=== PATIENT | male | born 1945 | race Caucasian/White ===

== ENCOUNTER 2019-02-06 15:18 | Inpatient (IN) | payer OTHER, MEDICARE ==
--- NOTE | 2019-02-06 15:56 | PDOC ---
History of Present Illness - General Stated Complaint: CHEST PAIN/SENT BY DR ABDI Time Seen by Provider: 02/06/19 15:55 History Source: Patient Exam Limitations: No Limitations - History of Present Illness Initial Comments: 02/06/19 16:39 73yM w PMHx colon cancer s/p resection, TIA, DM, HTN, HLD, bronchitis presenting w cough and chest pain. Non productive cough, eleno chest pain, nasal congestion, fevers (102 yesterday) started [address] Abdi PCP diagnosed pneumonia, given multiple rounds of antibiotics without improvement. Pt doesnt remember current antibiotic. Also took tylenol to temporarily relieve fevers, last dose 9a today. Denies nausea/vomiting, body aches, SOB, AB pain, urinary bowel changes. Renal US on 12/10/18 ordered for GUS showed no acute pathology, normal kidneys/ bladder, not significant BPH Past History - Past Medical History Allergies/Adverse Reactions: Allergies Allergy/AdvReac Type Severity Reaction Status Date / Time No Known Allergies Allergy Verified 02/06/19 18:20 Home Medications: Ambulatory Orders Amlodipine Besylate [Norvasc -] 5 mg PO DAILY 04/10/12 Cholecalciferol (Vitamin D3) [Vitamin D3] 2,000 unit PO DAILY 04/10/12 Finasteride 5 mg PO DAILY 04/10/12 Terazosin HCl [Hytrin -] 10 mg PO DAILY 04/10/12 Triamterene/Hydrochlorothiazid [Dyazide 37.5-25 Capsule] 37.5 mg PO DAILY Aspirin 81 mg PO DAILY 04/11/17 Dulaglutide [Trulicity] 1.5 mg SQ WEEKLY 04/11/17 metFORMIN HCL [Metformin HCl ER] 1,000 mg PO BID 04/11/17 Anemia: No Asthma: No Cancer: Yes (COLON 2000) Cardiac Disorders: No CVA: Yes (TIA NO RESIDUAL WEAKNESS 2015) COPD: No CHF: No Dementia: No Diabetes: Yes GI Disorders: Yes (COLON CANCER 2000, GERD) Disorders: No HTN: Yes Hypercholesterolemia: No Liver Disease: No Seizures: No Thyroid Disease: No - Surgical History Abdominal Surgery: Yes (COLON RESECTION WITH CHEMOTHERAPY 2000) Appendectomy: No Cardiac Surgery: No Cholecystectomy: No Lung Surgery: No Neurologic Surgery: No Orthopedic Surgery: Yes (LEFT HIP REPLACEMENT 2009) - Psycho Social/Smoking Cessation Hx Smoking History: Unknown if ever smoked Have you smoked in the past 12 months: No Number of Cigarettes Smoked Daily: 0 If you are a former smoker, when did you quit?: 1994 Hx Alcohol Use: No Drug/Substance Use Hx: No Substance Use Type: Alcohol Hx Substance Use Treatment: No Cardiac Specific PMH - Complaint Specific PMHX Pacemaker: No Review of Systems - Review of Systems Constitutional: Yes: Fever, Weakness. No: Chills HEENTM: Yes: Nose Congestion. No: Recent change in vision, Throat Pain Respiratory: Yes: Cough. No: Shortness of Breath Cardiac (ROS): Yes: Chest Pain. No: Palpitations, Syncope ABD/GI: No: Abdominal Distended, Constipated, Diarrhea, Nausea, Vomiting : No: Burning, Dysuria, Frequency Musculoskeletal: No: Back Pain, Joint Pain Integumentary: No: Bruising, Dryness, Erythema Neurological: Yes: Headache. No: Seizure, Tingling, Tremors Psychiatric: No: Anxiety, Depression, Stressors Endocrine: No: Excessive Sweating, Flushing, Intolerance to Cold, Intolerance to Heat Hematologic/Lymphatic: No: Anemia, Blood Clots *Physical Exam - Vital Signs Last Vital Signs Temp Pulse Resp BP Pulse Ox 99.6 F 83 14 149/80 96 02/06/19 15:39 02/06/19 15:39 02/06/19 15:39 02/06/19 15:42 02/06/19 15:39 - Physical Exam General Appearance: Yes: Nourished, Appropriately Dressed, Mild Distress, Obese HEENT: positive: EOMI, NATACHA, Normal Voice, Nasal Congestion, Rhinorrhea, Hearing Grossly Normal. negative: Scleral Icterus (R), Scleral Icterus (L) Respiratory/Chest: positive: Crackles, Wheezing. negative: Chest Tender, Normal Breath Sounds (coarse), Rhonchi Cardiovascular: positive: Regular Rhythm, Regular Rate, S1, S2. negative: Edema , Murmur Gastrointestinal/Abdominal: positive: Normal Bowel Sounds, Soft, Distended. negative: Tender, Organomegaly, Guarding, Rebound, Tenderness Integumentary: positive: Normal Color. 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 negative: Numbness, Confused, Disoriented Heart Score/ECG Review - History History: Slightly suspicious - Electrocardiogram EKG: Normal - Age Age: >/= 65 - Risk Factors Risk Factors Heart Score: Yes Hx Hypercholesterolemia, Yes Hx Hypertension, Yes Hx Diabetes, Yes Hx Obesity Based on the list above the patient has:: >/=3 risk factors or Hx atherosclerotic disease - Troponin Troponin: </= normal limit - Score Heart Score - Total: 4 ED Treatment Course - LABORATORY CBC & Chemistry Diagram: 02/06/19 17:00 02/06/19 17:00 - ADDITIONAL ORDERS Additional order review: Laboratory Results 02/06/19 02/06/19 02/06/19 18:16 17:40 17:40 PT with INR 11.90 INR 1.01 PTT (Actin FS) 30.7 VBG pH 7.38 POC VBG pCO2 40.4 POC VBG pO2 < 49 H VBG HCO3 23.3 VBG O2 Sat (Charlene) 55.3 L VBG Base Excess -1.1 Sodium Potassium Chloride Carbon Dioxide Anion Gap BUN Creatinine Est GFR (CKD-EPI)AfAm Est GFR (CKD-EPI)NonAf Random Glucose Lactic Acid 1.4 Calcium Total Bilirubin AST ALT Alkaline Phosphatase Total Protein Albumin 02/06/19 17:00 PT with INR INR PTT (Actin FS) VBG pH POC VBG pCO2 POC VBG pO2 VBG HCO3 VBG O2 Sat (Charlene) VBG Base Excess Sodium 138 Potassium 3.9 Chloride 106 Carbon Dioxide 25 Anion Gap 8 BUN 39.5 H Creatinine 2.4 H Est GFR (CKD-EPI)AfAm 30.11 Est GFR (CKD-EPI)NonAf 25.98 Random Glucose 105 Lactic Acid Calcium 9.2 Total Bilirubin 0.2 AST 40 H ALT 43 Alkaline Phosphatase 44 L Total Protein 7.3 Albumin 4.0 02/06/19 17:00 RBC 3.77 L MCV 87.3 MCHC 32.5 RDW 15.3 MPV 7.3 L Neutrophils % 69.3 Lymphocytes % 13.4 Monocytes % 15.9 H Eosinophils % 0.5 Basophils % 0.9 - RADIOLOGY Radiology Studies Ordered: Category Date Time Status CHEST X-RAY PORTABLE* [RAD] Stat Radiology 02/06/19 16:37 Taken - Medications Given in the ED: ED Medications Discontinued Medications Generic Name Dose Route Start Last Admin Trade Name Freq PRN Reason Stop Dose Admin Acetaminophen 1,000 mg 02/06/19 17:27 02/06/19 18:12 Ofirmev Injection - IVPB 02/06/19 17:28 1,000 mg ONCE ONE Administration Albuterol/Ipratropium 1 amp 02/06/19 17:16 02/06/19 17:50 Duoneb - NEB 02/06/19 17:17 1 amp ONCE ONE Administration Methylprednisolone Sodium Succinate 125 mg 02/06/19 17:16 02/06/19 17:57 Solu-Medrol - IVPUSH 02/06/19 17:17 125 mg ONCE ONE Administration Sodium Chloride 1,000 ml 02/06/19 18:38 02/06/19 18:53 Normal Saline - IV 02/06/19 18:39 1,000 ml ONCE ONE Administration Medical Decision Making - Medical Decision Making 02/06/19 16:03 sepsis workup EKG sinus tachycardia, L anterior fascicular block, HR 102, QTc 469, no ST changes CXR shows enlarged cardiac silhouette vs 2014 duoneb, solumedrol, tylenol Hgb 10.7, Cr 2.4 --- 73yM w PMHx colon cancer s/p resection, TIA, DM, HTN, HLD, bronchitis presenting w 4 weeks cough, chest pain, headache d/t URI vs PNA and COPD exacerbation (wheezing). CXR portable did not show any focal consolidation, but showed enlarged cardiac silhouette vs 2015. Low concern for ACS (neg trop, NSR EKG). Has GUS w elevated Cr 2.4 and anemia Hgb 10.7. Given duonebx1, solumedrol , tylenol Plan to admit to m/s Dr Garcia for URI resistant to outpatient therapy, high HEART score (4), COPD exacerbation, GUS Pending UA Signed out to night team. Discharge - Discharge Information Problems reviewed: Yes Clinical Impression/Diagnosis: GUS (acute kidney injury), COPD exacerbation URI (upper respiratory infection) Qualifiers: URI type: unspecified URI Qualified Code(s): J06.9 - Acute upper respiratory infection, unspecified Condition: Improved - Follow up/Referral Referrals: Mindy Garcia MD [Primary Care Provider] - - Patient Discharge Instructions - Post Discharge Activity
--- NOTE | 2019-02-06 17:01 | PDOC ---
Attending Attestation - Resident Resident Name: Adi Gale - HPI HPI: 02/06/19 17:26 Pt presents to the ED complaining of several weeks of productive cough, fever and shortness of breath. + fevers at home. Patient has been placed on two different antibiotics by Dr. Garcia without relief. Denies nausea or vomiting. - Physicial Exam PE: 02/06/19 17:28 Agree with resident exam. Patient is alert and oriented x 3 and in no acute distress. Speaking in complete sentences. + diffuse wheezing on lung exam. - Medical Decision Making 02/06/19 17:29 Pt presents to the ED complaining of cough, fever and shortness of breath. Two courses of PO antibiotics without success. Will check CXR, labs, treat with antibiotics and admit to medicine.
[2019-02-06] MEDS ORDERED: ALBUTEROL SO4 2.5/IPRATROPIUM 0.5 INH SOL 3 ML VIAL.NEB. NEB ONE ×2 (17:16→17:49)
[2019-02-06] MEDS ORDERED: methylPREDNISolone NA SUCC 125 MG/2 ML VIAL IVPUSH ONE (17:16)
[2019-02-06] MEDS ORDERED: ACETAMINOPHEN 1000 MG/100 ML VIAL (NON FORMULARY) IVPB ONE (17:27)
[2019-02-06] MEDS ORDERED: ACETAMINOPHEN INJECTION 100 ML IVPB ONE (17:49)
[2019-02-06] MEDS ORDERED: methylPREDNISolone NA SUCC 125 MG/2 ML VIAL ONE (17:49)
[2019-02-06 17:56] LABS: VENOUS PC02 40.4 mmHg (38-52); VENOUS PH 7.38 (7.31-7.41)
[2019-02-06 17:58] LABS: VENOUS PO2 < 49 mmHg (28-48)
[2019-02-06 18:03] LABS: BASO % 0.9 % (0-2.0); EOS % 0.5 % (0-4.5); HEMATOCRIT 32.9 % (35.4-49); HEMOGLOBIN 10.7 GM/dL (11.7-16.9); LYMPH % 13.4 % (8-40); MCH 28.4 pg (25.7-33.7); MCHC 32.5 g/dl (32.0-35.9); MEAN CELL VOLUME 87.3 fl (80-96); MEAN PLT VOLUME 7.3 fl (7.5-11.1); MONO % 15.9 % (3.8-10.2); NEUT % 69.3 % (42.8-82.8); PLATELET COUNT 209 K/MM3 (134-434); RBC 3.77 M/mm3 (4.00-5.60); RDW 15.3 % (11.9-15.9); WHITE BLOOD COUNT 5.5 K/mm3 (4.0-10.0)
[2019-02-06 18:25] LABS: BILIRUBIN,TOTAL 0.2 mg/dL (0.2-1); BLOOD UREA NITROGEN 39.5 mg/dL (7-18); CALCIUM 9.2 mg/dL (8.5-10.1); CREATININE 2.4 mg/dL (0.55-1.3); POTASSIUM 3.9 mmol/L (3.5-5.1); TOT PROT 7.3 g/dl (6.4-8.2)
[2019-02-06 18:36] LABS: INR 1.01 (0.83-1.09); PROTHROMBIN TIME (PATIENT) 11.9 SEC (9.7-13.0)
[2019-02-06] MEDS ORDERED: SODIUM CHLORIDE 0.9% 500 ML INFUS.BAG IV ONE ×2 (18:38→19:52)
[2019-02-06 18:39] LABS: ACTIVATED PTT 30.7 SECONDS (25.2-36.5)
--- NOTE | 2019-02-06 19:10 | PDOC ---
*Physical Exam - Vital Signs Last Vital Signs Temp Pulse Resp BP Pulse Ox 99.6 F 83 14 149/80 96 02/06/19 15:39 02/06/19 15:39 02/06/19 15:39 02/06/19 15:42 02/06/19 15:39 ED Treatment Course - LABORATORY CBC & Chemistry Diagram: 02/06/19 17:00 02/06/19 17:00 - ADDITIONAL ORDERS Additional order review: Laboratory Results 02/06/19 02/06/19 02/06/19 18:16 17:40 17:40 PT with INR 11.90 INR 1.01 PTT (Actin FS) 30.7 VBG pH 7.38 POC VBG pCO2 40.4 POC VBG pO2 < 49 H VBG HCO3 23.3 VBG O2 Sat (Charlene) 55.3 L VBG Base Excess -1.1 Sodium Potassium Chloride Carbon Dioxide Anion Gap BUN Creatinine Est GFR (CKD-EPI)AfAm Est GFR (CKD-EPI)NonAf Random Glucose Lactic Acid 1.4 Calcium Total Bilirubin AST ALT Alkaline Phosphatase Total Protein Albumin 02/06/19 17:00 PT with INR INR PTT (Actin FS) VBG pH POC VBG pCO2 POC VBG pO2 VBG HCO3 VBG O2 Sat (Charlene) VBG Base Excess Sodium 138 Potassium 3.9 Chloride 106 Carbon Dioxide 25 Anion Gap 8 BUN 39.5 H Creatinine 2.4 H Est GFR (CKD-EPI)AfAm 30.11 Est GFR (CKD-EPI)NonAf 25.98 Random Glucose 105 Lactic Acid Calcium 9.2 Total Bilirubin 0.2 AST 40 H ALT 43 Alkaline Phosphatase 44 L Total Protein 7.3 Albumin 4.0 02/06/19 17:00 RBC 3.77 L MCV 87.3 MCHC 32.5 RDW 15.3 MPV 7.3 L Neutrophils % 69.3 Lymphocytes % 13.4 Monocytes % 15.9 H Eosinophils % 0.5 Basophils % 0.9 - Medications Given in the ED: ED Medications Discontinued Medications Generic Name Dose Route Start Last Admin Trade Name Freq PRN Reason Stop Dose Admin Acetaminophen 1,000 mg 02/06/19 17:27 02/06/19 18:12 Ofirmev Injection - IVPB 02/06/19 17:28 1,000 mg ONCE ONE Administration Albuterol/Ipratropium 1 amp 02/06/19 17:16 02/06/19 17:50 Duoneb - NEB 02/06/19 17:17 1 amp ONCE ONE Administration Methylprednisolone Sodium Succinate 125 mg 02/06/19 17:16 02/06/19 17:57 Solu-Medrol - IVPUSH 02/06/19 17:17 125 mg ONCE ONE Administration Sodium Chloride 1,000 ml 02/06/19 18:38 02/06/19 18:53 Normal Saline - IV 02/06/19 18:39 1,000 ml ONCE ONE Administration Medical Decision Making - Medical Decision Making 02/06/19 19:08 Pt received on sign out from Dr. Gale. 73M hx of DM HTN HLD bronchitis with 4 weeks of cough, congestion, fevers. Had outpt abx but unsure of course. Sent in by Dr. Garcia. CXR shows cardiomegaly w /o clear consolidation. Labs show GUS. UA pending. Plan to admit to med/surg for PNA and failed outpatient treatment and GUS. ED course includes 1 duoneb, solumedrol and tylenol. 02/06/19 19:45 Pt started on azithromycin and ceftriaxone. 02/06/19 20:00 D/w Dr. Garcia who accepts the patient for admission. Discharge - Discharge Information Problems reviewed: Yes Clinical Impression/Diagnosis: GUS (acute kidney injury), Pneumonia URI (upper respiratory infection) Qualifiers: URI type: unspecified URI Qualified Code(s): J06.9 - Acute upper respiratory infection, unspecified Condition: Stable - Admission Yes - Follow up/Referral - Patient Discharge Instructions - Post Discharge Activity
[2019-02-06 19:39] LABS: EPI CELLS 0.6 /HPF (0-5/HPF); HYALINE CASTS 2 /lpf (0-8); URINE APPEARANCE CLEAR; URINE BACTERIA 28.9 /hpf (NEGATIVE); URINE BILIRUBIN NEGATIVE (NEGATIVE); URINE COLOR YELLOW; URINE GLUCOSE (UA) NEGATIVE (NEGATIVE); URINE KETONE NEGATIVE (NEGATIVE); URINE LEUK ESTERASE NEGATIVE (NEGATIVE); URINE NITRITE NEGATIVE (NEGATIVE); URINE PROTEIN 2+ (NEGATIVE); URINE RBC 1 /hpf (0-4); URINE UROBILINOGEN 0.2 mg/dL (0.2-1.0); URINE WBC 1 /hpf (0-5)
[2019-02-06] MEDS ORDERED: AZITHROMYCIN IVPB 500 MG in DEXTROSE 5%-WATER - 250 ML IVPB ONE (19:51)
[2019-02-06] MEDS ORDERED: CEFTRIAXONE 1 GM in DEXTROSE 5%-WATER - 100 ML IVPB ONE (19:52)
[2019-02-06] MEDS ORDERED: AZITHROMYCIN IVPB 500 MG/250 ML BAG IVPB ONE (20:22)
[2019-02-06] MEDS ORDERED: CEFTRIAXONE 1 GM/50 ML BAG ONE (20:22)
[2019-02-06] MEDS: methylPREDNISolone NA SUCC 40 MG/1 ML VIAL IVPUSH SCH (23:13)
[2019-02-06] MEDS: SODIUM CHLORIDE 1,000 ML IV SCH (23:13)
[2019-02-07] MEDS: methylPREDNISolone NA SUCC 40 MG/1 ML VIAL IVPUSH SCH ×4 (03:47→21:36)
[2019-02-07] MEDS: INSULIN SLIDING SCALE (NOVOLOG) 1 VIAL SQ SCH ×4 (07:00→21:39)
[2019-02-07] MEDS ORDERED: AMPICILLIN NA/SULBACTAM NA 1.5 GM VIAL IVPB SCH (08:00)
[2019-02-07] MEDS ORDERED: AMPICILLIN NA/SULBACTAM NA 1.5 GM VIAL ONE ×2 (08:07→17:20)
[2019-02-07] MEDS ORDERED: SODIUM CHLORIDE 100 ML IVPB ONE ×2 (08:07→17:20)
[2019-02-07] MEDS: ALBUTEROL SO4 2.5/IPRATROPIUM 0.5 INH SOL 3 ML VIAL.NEB. NEB SCH ×4 (08:10→20:15)
[2019-02-07] MEDS: AMPICILLIN NA/SULBACTAM NA 1.5 GM in SODIUM CHLORIDE 100 ML IVPB SCH ×2 (08:44→17:22)
[2019-02-07 09:00] LABS: BASO % 0.4 % (0-2.0); HEMATOCRIT 34.6 % (35.4-49); MCH 28.3 pg (25.7-33.7); MCHC 31.9 g/dl (32.0-35.9); MEAN CELL VOLUME 88.6 fl (80-96); MEAN PLT VOLUME 7.3 fl (7.5-11.1); MONO % 2.5 % (3.8-10.2); NEUT % 80.1 % (42.8-82.8); PLATELET COUNT 227 K/MM3 (134-434); RBC 3.91 M/mm3 (4.00-5.60); RDW 15.4 % (11.9-15.9); WHITE BLOOD COUNT 5.2 K/mm3 (4.0-10.0)
[2019-02-07 09:25] LABS: ALBUMIN 3.9 g/dl (3.4-5.0); BILIRUBIN,TOTAL 0.2 mg/dL (0.2-1); BLOOD UREA NITROGEN 35.7 mg/dL (7-18); CALCIUM 8.8 mg/dL (8.5-10.1); CREATININE 2.3 mg/dL (0.55-1.3); POTASSIUM 3.6 mmol/L (3.5-5.1); TOT PROT 7.6 g/dl (6.4-8.2)
[2019-02-07] MEDS: ASPIRIN 81 MG CHEWABLE TABLETS PO SCH (09:40)
[2019-02-07] MEDS: amLODIPine BESYLATE 5 MG TABLET (FP) PO SCH (09:40)
[2019-02-07] MEDS: FINASTERIDE 5 MG TABLET (FP) PO SCH (09:40)
[2019-02-07] MEDS: PANTOPRAZOLE 40 MG TABLET (FP) PO SCH (09:40)
[2019-02-07] MEDS: guaiFENesin/D-M SUGAR-FREE/ACLHOL-FREE 118 ML BOTTLE PO PRN ×2 (17:43→21:38)
[2019-02-07] MEDS ORDERED: SODIUM CHLORIDE 1,000 ML IV SCH (19:30)
--- NOTE | 2019-02-07 19:35 | HP ---
Admitting History and Physical - Admission Chief Complaint: worsening cough and high fever not responding to oral antibiotics History of Present Illness: 73 yo male with PMH of COPD, DM devi 2, and Colon cancer post partial resection, was seen in the office repeatedly for persisting cough and persisting fever of 102. He was treated with 2 rounds of antibiotics : Augmentin and Biaxin without improvement. His cough interferes with his sleep and activity. He DENIES chest pain or shortness of breath, denies wheezing. Limitations to Obtaining History: No Limitations - Past Medical History Cardiovascular: Yes: HTN, Hyperlipdemia Pulmonary: Yes: COPD Gastrointestinal: Yes: Cancer Psych: Yes: Anxiety, Depression Endocrine: Yes: Diabetes Mellitus - Smoking History Smoking history: Former smoker Have you smoked in the past 12 months: No Aproximately how many cigarettes per day: 0 If you are a former smoker, when did you quit?: 1994 - Alcohol/Substance Use Hx Alcohol Use: No Home Medications - Allergies Allergies/Adverse Reactions: Allergies Allergy/AdvReac Type Severity Reaction Status Date / Time No Known Allergies Allergy Verified 02/06/19 18:20 - Home Medications Home Medications: Ambulatory Orders Amlodipine Besylate [Norvasc -] 5 mg PO DAILY 04/10/12 Cholecalciferol (Vitamin D3) [Vitamin D3] 2,000 unit PO DAILY 04/10/12 Finasteride 5 mg PO DAILY 04/10/12 Terazosin HCl [Hytrin -] 10 mg PO DAILY 04/10/12 Aspirin 81 mg PO DAILY 04/11/17 Amlodipine Besylate [Norvasc -] 5 mg PO DAILY tablet 02/13/19 Amox-Tr/K Cl [Augmentin 875-125mg Tablet -] 1 tab PO BID@0800,1730 #10 tablet Aspirin [ASA -] 81 mg PO DAILY tab.chew 02/13/19 Finasteride [Proscar -] 5 mg PO DAILY tablet 02/13/19 Pantoprazole Sodium [Protonix -] 40 mg PO DAILY tablet.ec 02/13/19 Potassium Chloride [K-Dur -] 40 meq PO DAILY #90 tablet.er 02/13/19 Sitagliptin Phosphate [Januvia -] 50 mg PO DAILY@0700 #90 tablet 02/13/19 Terazosin HCl [Hytrin -] 5 mg PO HS capsule 02/13/19 predniSONE [Deltasone -] 60 mg PO DAILY #44 tablet 02/13/19 Review of Systems Unable to obtain ROS, reason: cough, weak, fever - Review of Systems Constitutional: reports: Fever, Loss of Appetite, Weakness Eyes: reports: No Symptoms HENT: reports: No Symptoms Neck: reports: No Symptoms Cardiovascular: reports: No Symptoms Respiratory: reports: Cough, Exercise Intolerance (decreased) Musculoskeletal: reports: Back Pain, Muscle Weakness Neurological: reports: Weakness Physical Examination Vital Signs: Vital Signs Temperature 97.4 F L 02/07/19 17:53 Pulse Rate 86 02/07/19 17:53 Respiratory Rate 20 02/07/19 17:53 Blood Pressure 144/76 02/07/19 17:53 O2 Sat by Pulse Oximetry (%) 93 L 02/07/19 09:00 Constitutional: Yes: Well Nourished, No Distress, Obese Eyes: Yes: Conjunctiva Clear, EOM Intact HENT: Yes: Atraumatic, Normocephalic Cardiovascular: Yes: Regular Rate and Rhythm, S1, S2 Respiratory: Yes: Cough, Orthopnea. No: Rales Gastrointestinal: Yes: Normal Bowel Sounds, Soft, Abdomen, Obese, Distention. No: Palpable Mass, Pulsatile Mass, Rectal Bleeding, Splenomegaly, Tenderness, Epigastrium Renal/: No: Bladder Distention, CVA Tenderness - Left, CVA Tenderness - Right , Black Present Musculoskeletal: Yes: Back Pain Extremities: No: Calf Tenderness Edema: No Neurological: Yes: Alert, Oriented Labs: CBC, BMP 02/07/19 08:40 02/07/19 08:40 Imaging - Results Chest X-ray: Other (read by me: no pleural effusion, no infiltrate no masses) Problem List - Problems (1) COPD (chronic obstructive pulmonary disease) Assessment/Plan: SoluMedrol 60 mg iv every 8 hours Unasyn iv every 8 hours Duo Neb Problems reviewed: Yes Code(s): J44.9 - CHRONIC OBSTRUCTIVE PULMONARY DISEASE, UNSPECIFIED (2) Acute kidney injury superimposed on CKD Assessment/Plan: gentle hydration repeat labs in am Code(s): N17.9 - ACUTE KIDNEY FAILURE, UNSPECIFIED; N18.9 - CHRONIC KIDNEY DISEASE, UNSPECIFIED (3) Diabetes mellitus Assessment/Plan: hold MEtformin due to AKD Insulin as needed AC and HS Code(s): E11.9 - TYPE 2 DIABETES MELLITUS WITHOUT COMPLICATIONS (4) Diabetes mellitus type 2 in obese Assessment/Plan: BGM's AC and HS Code(s): E11.69 - TYPE 2 DIABETES MELLITUS WITH OTHER SPECIFIED COMPLICATION; E66.9 - OBESITY, UNSPECIFIED
[2019-02-07] MEDS: TERAZOSIN HCL 5 MG CAPSULE PO SCH (21:38)
[2019-02-08] MEDS ORDERED: SODIUM CHLORIDE 100 ML IVPB ONE ×3 (01:29→15:04)
[2019-02-08] MEDS ORDERED: AMPICILLIN NA/SULBACTAM NA 1.5 GM VIAL ONE ×3 (01:29→15:04)
[2019-02-08] MEDS: SODIUM CHLORIDE 1,000 ML IV SCH ×3 (01:44→23:33)
[2019-02-08] MEDS: methylPREDNISolone NA SUCC 40 MG/1 ML VIAL IVPUSH SCH ×4 (02:23→21:53)
[2019-02-08] MEDS: AMPICILLIN NA/SULBACTAM NA 1.5 GM in SODIUM CHLORIDE 100 ML IVPB SCH ×3 (02:25→17:10)
[2019-02-08] MEDS: INSULIN SLIDING SCALE (NOVOLOG) 1 VIAL SQ SCH ×4 (06:48→21:54)
[2019-02-08] MEDS: guaiFENesin/D-M SUGAR-FREE/ACLHOL-FREE 118 ML BOTTLE PO PRN ×3 (06:50→21:59)
[2019-02-08] MEDS: ALBUTEROL SO4 2.5/IPRATROPIUM 0.5 INH SOL 3 ML VIAL.NEB. NEB SCH ×4 (08:25→19:50)
[2019-02-08 09:00] LABS: ALBUMIN 3.5 g/dl (3.4-5.0); BILIRUBIN,TOTAL 0.2 mg/dL (0.2-1); BLOOD UREA NITROGEN 46.9 mg/dL (7-18); CALCIUM 8.4 mg/dL (8.5-10.1); CREATININE 2.2 mg/dL (0.55-1.3); POTASSIUM 3.9 mmol/L (3.5-5.1); TOT PROT 6.5 g/dl (6.4-8.2)
[2019-02-08] MEDS: amLODIPine BESYLATE 5 MG TABLET (FP) PO SCH (09:43)
[2019-02-08] MEDS: FINASTERIDE 5 MG TABLET (FP) PO SCH (09:43)
[2019-02-08] MEDS: ASPIRIN 81 MG CHEWABLE TABLETS PO SCH (09:43)
[2019-02-08] MEDS: PANTOPRAZOLE 40 MG TABLET (FP) PO SCH (09:43)
--- NOTE | 2019-02-08 10:14 | EKG ---
Test Reason : Blood Pressure : / mmHG Vent. Rate : 102 BPM Atrial Rate : 102 BPM P-R Int : 174 ms QRS Dur : 102 ms QT Int : 360 ms P-R-T Axes : 016 -59 032 degrees QTc Int : 469 ms SINUS TACHYCARDIA LEFT ANTERIOR FASCICULAR BLOCK ABNORMAL ECG NO PREVIOUS ECGS AVAILABLE Confirmed by PALOMA HOOVER, SHELBI ([id number]) on 02/08/2019 10:14:05 AM Referred By: Confirmed By:SHELBI DOW MD
--- NOTE | 2019-02-08 12:48 | PN ---
Progress Note, Physician Chief Complaint: cough, no fever - Current Medication List Current Medications: Active Medications Albuterol/Ipratropium (Duoneb -) 1 amp NEB RQID [facility] Last Admin: 02/08/19 11:10 Dose: 1 amp Amlodipine Besylate (Norvasc -) 5 mg PO DAILY [facility] Last Admin: 02/08/19 09:43 Dose: 5 mg Aspirin (Asa -) 81 mg PO DAILY [facility] Last Admin: 02/08/19 09:43 Dose: 81 mg Finasteride (Proscar -) 5 mg PO DAILY [facility] Last Admin: 02/08/19 09:43 Dose: 5 mg Guaifenesin (Diabetic Tussin Dm -) 10 ml PO Q4H PRN PRN Reason: COUGH Last Admin: 02/08/19 06:50 Dose: 10 ml Ampicillin Sodium/Sulbactam (Sodium 1.5 gm/ Sodium Chloride) 100 mls @ 200 mls/ hr IVPB Q8H-IV [facility] Last Admin: 02/08/19 09:46 Dose: 200 mls/hr Sodium Chloride (Normal Saline -) 1,000 mls @ 50 mls/hr IV ASDIR [facility] Stop: 02/08/19 19:25 Last Admin: 02/08/19 02:21 Dose: 50 mls/hr Insulin Aspart (Novolog Vial Sliding Scale -) 1 vial SQ ACHS [facility]; Protocol Last Admin: 02/08/19 11:59 Dose: 4 units Methylprednisolone Sodium Succinate (Solu-Medrol -) 60 mg IVPUSH Q6H-IV [facility] Pantoprazole Sodium (Protonix -) 40 mg PO DAILY [facility] Last Admin: 02/08/19 09:43 Dose: 40 mg Sitagliptin Phosphate (Januvia -) 25 mg PO DAILY@0700 [facility] Terazosin HCl (Hytrin -) 5 mg PO HS [facility] Last Admin: 02/07/19 21:38 Dose: 5 mg - Objective Vital Signs: Vital Signs Temperature 97.5 F L 02/08/19 06:00 Pulse Rate 80 02/08/19 10:00 Respiratory Rate 18 02/08/19 10:00 Blood Pressure 136/72 02/08/19 10:00 O2 Sat by Pulse Oximetry (%) 96 02/08/19 09:00 Respiratory: Yes: Rhonchi, Wheezes (bilaterally) Labs: CBC, BMP 02/07/19 08:40 02/08/19 08:03 INR, PTT INR 1.01 (0.83-1.09) 02/06/19 18:16 Problem List - Problems (1) COPD (chronic obstructive pulmonary disease) Assessment/Plan: SoluMedrol 60 mg iv every 8 hours Unasyn iv every 8 hours Duo Neb Code(s): J44.9 - CHRONIC OBSTRUCTIVE PULMONARY DISEASE, UNSPECIFIED (2) Acute kidney injury superimposed on CKD Assessment/Plan: gentle hydration repeat labs in am Code(s): N17.9 - ACUTE KIDNEY FAILURE, UNSPECIFIED; N18.9 - CHRONIC KIDNEY DISEASE, UNSPECIFIED (3) Diabetes mellitus Assessment/Plan: hold MEtformin due to AKD Insulin as needed AC and HS Code(s): E11.9 - TYPE 2 DIABETES MELLITUS WITHOUT COMPLICATIONS (4) Diabetes mellitus type 2 in obese Assessment/Plan: BG's AC and HS Code(s): E11.69 - TYPE 2 DIABETES MELLITUS WITH OTHER SPECIFIED COMPLICATION; E66.9 - OBESITY, UNSPECIFIED
[2019-02-08] MEDS: TERAZOSIN HCL 5 MG CAPSULE PO SCH (21:54)
[2019-02-09] MEDS ORDERED: AMPICILLIN NA/SULBACTAM NA 1.5 GM VIAL ONE ×3 (01:23→17:34)
[2019-02-09] MEDS ORDERED: SODIUM CHLORIDE 100 ML IVPB ONE ×3 (01:24→17:34)
[2019-02-09] MEDS: AMPICILLIN NA/SULBACTAM NA 1.5 GM in SODIUM CHLORIDE 100 ML IVPB SCH ×3 (01:40→17:41)
[2019-02-09] MEDS: methylPREDNISolone NA SUCC 40 MG/1 ML VIAL IVPUSH SCH ×4 (02:21→21:28)
[2019-02-09] MEDS: INSULIN SLIDING SCALE (NOVOLOG) 1 VIAL SQ SCH ×4 (06:40→21:29)
[2019-02-09] MEDS: ALBUTEROL SO4 2.5/IPRATROPIUM 0.5 INH SOL 3 ML VIAL.NEB. NEB SCH ×4 (08:00→20:49)
[2019-02-09 08:09] LABS: ALBUMIN 3.2 g/dl (3.4-5.0); BILIRUBIN,TOTAL 0.2 mg/dL (0.2-1); BLOOD UREA NITROGEN 47.2 mg/dL (7-18); CALCIUM 8.1 mg/dL (8.5-10.1); CREATININE 2.1 mg/dL (0.55-1.3); POTASSIUM 4.1 mmol/L (3.5-5.1); TOT PROT 6.2 g/dl (6.4-8.2)
[2019-02-09] MEDS: ASPIRIN 81 MG CHEWABLE TABLETS PO SCH (09:59)
[2019-02-09] MEDS: PANTOPRAZOLE 40 MG TABLET (FP) PO SCH (09:59)
[2019-02-09] MEDS: amLODIPine BESYLATE 5 MG TABLET (FP) PO SCH (09:59)
[2019-02-09] MEDS: FINASTERIDE 5 MG TABLET (FP) PO SCH (09:59)
[2019-02-09] MEDS ORDERED: INSULIN (NOVOLOG) ASPART 100 UNITS/ML 10ML VIAL ONE (11:52)
[2019-02-09] MEDS: guaiFENesin/D-M SUGAR-FREE/ACLHOL-FREE 118 ML BOTTLE PO PRN ×2 (13:27→21:29)
[2019-02-09] MEDS: SODIUM CHLORIDE 1,000 ML IV SCH (15:33)
[2019-02-09] MEDS ORDERED: PT OWN MED DRAWER 7, Y5N ONE (20:58)
[2019-02-09] MEDS: TERAZOSIN HCL 5 MG CAPSULE PO SCH (21:29)
--- NOTE | 2019-02-09 21:36 | PN ---
Progress Note, Physician Chief Complaint: cough improved, orthopnea better edema of the lower extremities History of Present Illness: 72 yo male admitted with hpersisiting cough not responding to oral antibiotics - Current Medication List Current Medications: Active Medications Albuterol/Ipratropium (Duoneb -) 1 amp NEB RQID [facility] Last Admin: 02/09/19 20:49 Dose: 1 amp Amlodipine Besylate (Norvasc -) 5 mg PO DAILY [facility] Last Admin: 02/09/19 09:59 Dose: 5 mg Aspirin (Asa -) 81 mg PO DAILY [facility] Last Admin: 02/09/19 09:59 Dose: 81 mg Finasteride (Proscar -) 5 mg PO DAILY [facility] Last Admin: 02/09/19 09:59 Dose: 5 mg Guaifenesin (Diabetic Tussin Dm -) 10 ml PO Q4H PRN PRN Reason: COUGH Last Admin: 02/09/19 21:29 Dose: 10 ml Ampicillin Sodium/Sulbactam (Sodium 1.5 gm/ Sodium Chloride) 100 mls @ 200 mls/ hr IVPB Q8H-IV [facility] Last Admin: 02/09/19 17:41 Dose: 200 mls/hr Sodium Chloride (Normal Saline -) 1,000 mls @ 75 mls/hr IV ASDIR [facility] Last Admin: 02/09/19 15:33 Dose: 75 mls/hr Insulin Aspart (Novolog Vial Sliding Scale -) 1 vial SQ ACHS [facility]; Protocol Last Admin: 02/09/19 21:29 Dose: 6 units Methylprednisolone Sodium Succinate (Solu-Medrol -) 60 mg IVPUSH Q8H-IV [facility] Pantoprazole Sodium (Protonix -) 40 mg PO DAILY [facility] Last Admin: 02/09/19 09:59 Dose: 40 mg Sitagliptin Phosphate (Januvia -) 25 mg PO DAILY@0700 [facility] Last Admin: 02/09/19 06:40 Dose: 25 mg Sitagliptin Phosphate (Januvia -) 50 mg PO DAILY@0700 [facility] Terazosin HCl (Hytrin -) 5 mg PO HS [facility] Last Admin: 02/09/19 21:29 Dose: 5 mg - Objective Vital Signs: Vital Signs Temperature 98.5 F 02/09/19 18:00 Pulse Rate 77 02/09/19 18:00 Respiratory Rate 20 02/09/19 18:00 Blood Pressure 136/75 02/09/19 18:00 O2 Sat by Pulse Oximetry (%) 94 L 02/09/19 09:00 Constitutional: Yes: Well Nourished, No Distress Eyes: Yes: Conjunctiva Clear, EOM Intact HENT: Yes: Atraumatic, Normocephalic Neck: Yes: Supple, Trachea Midline Cardiovascular: Yes: Regular Rate and Rhythm, S1, S2 Respiratory: Yes: Regular, CTA Bilaterally, On Nasal O2 Gastrointestinal: Yes: Normal Bowel Sounds, Soft ...Rectal Exam: Yes: Deferred Genitourinary: Yes: WNL Musculoskeletal: Yes: WNL Extremities: Yes: WNL. No: Calf Tenderness Edema: Yes Edema: LLE: 1+, RLE: 1+ Neurological: Yes: Alert, Oriented Psychiatric: Yes: Alert, Oriented Labs: CBC, BMP 02/07/19 08:40 02/09/19 07:10 INR, PTT INR 1.01 (0.83-1.09) 02/06/19 18:16 Problem List - Problems (1) COPD (chronic obstructive pulmonary disease) Assessment/Plan: SoluMedrol 60 mg iv every 8 hours Unasyn iv every 8 hours Duo Neb Code(s): J44.9 - CHRONIC OBSTRUCTIVE PULMONARY DISEASE, UNSPECIFIED (2) Acute kidney injury superimposed on CKD Assessment/Plan: gentle hydration repeat labs in am Code(s): N17.9 - ACUTE KIDNEY FAILURE, UNSPECIFIED; N18.9 - CHRONIC KIDNEY DISEASE, UNSPECIFIED (3) Diabetes mellitus Code(s): E11.9 - TYPE 2 DIABETES MELLITUS WITHOUT COMPLICATIONS (4) Diabetes mellitus type 2 in obese Code(s): E11.69 - TYPE 2 DIABETES MELLITUS WITH OTHER SPECIFIED COMPLICATION; E66.9 - OBESITY, UNSPECIFIED (5) CHF (congestive heart failure) Assessment/Plan: add Hydrochloprothiazide 25 mg daily Code(s): I50.9 - HEART FAILURE, UNSPECIFIED Qualifiers: Heart failure type: diastolic Heart failure chronicity: acute on chronic Qualified Code(s): I50.33 - Acute on chronic diastolic (congestive) heart failure
[2019-02-10] MEDS ORDERED: SODIUM CHLORIDE 100 ML IVPB ONE ×3 (02:27→17:53)
[2019-02-10] MEDS ORDERED: AMPICILLIN NA/SULBACTAM NA 1.5 GM VIAL ONE ×3 (02:27→17:53)
[2019-02-10] MEDS: AMPICILLIN NA/SULBACTAM NA 1.5 GM in SODIUM CHLORIDE 100 ML IVPB SCH ×3 (02:33→17:55)
[2019-02-10] MEDS: methylPREDNISolone NA SUCC 40 MG/1 ML VIAL IVPUSH SCH ×3 (03:17→17:52)
[2019-02-10] MEDS: sitaGLIPtin PHOSPHATE 50 MG TABLET PO SCH (06:51)
[2019-02-10] MEDS: SODIUM CHLORIDE 1,000 ML IV SCH ×2 (06:52→16:17)
[2019-02-10] MEDS: INSULIN SLIDING SCALE (NOVOLOG) 1 VIAL SQ SCH ×4 (06:52→21:23)
[2019-02-10] MEDS ORDERED: PT OWN MED DRAWER 7, Y5N ONE (07:17)
[2019-02-10] MEDS ORDERED: INSULIN (NOVOLOG) ASPART 100 UNITS/ML 10ML VIAL ONE ×2 (07:18→11:50)
[2019-02-10] MEDS: ALBUTEROL SO4 2.5/IPRATROPIUM 0.5 INH SOL 3 ML VIAL.NEB. NEB SCH ×3 (08:00→20:15)
[2019-02-10] MEDS: amLODIPine BESYLATE 5 MG TABLET (FP) PO SCH (09:19)
[2019-02-10] MEDS: PANTOPRAZOLE 40 MG TABLET (FP) PO SCH (09:19)
[2019-02-10] MEDS: ASPIRIN 81 MG CHEWABLE TABLETS PO SCH (09:19)
[2019-02-10] MEDS: FINASTERIDE 5 MG TABLET (FP) PO SCH (09:19)
[2019-02-10 09:42] LABS: ALBUMIN 3.3 g/dl (3.4-5.0); BILIRUBIN,TOTAL 1.2 mg/dL (0.2-1); BLOOD UREA NITROGEN 44.6 mg/dL (7-18); CALCIUM 8.3 mg/dL (8.5-10.1); CREATININE 1.9 mg/dL (0.55-1.3); TOT PROT 6.3 g/dl (6.4-8.2)
[2019-02-10] MEDS ORDERED: ALBUTEROL SO4 2.5/IPRATROPIUM 0.5 INH SOL 3 ML VIAL.NEB. NEB STA (16:11)
--- NOTE | 2019-02-10 16:12 | PN ---
Progress Note, Physician Chief Complaint: cough,still present - Current Medication List Current Medications: Active Medications Albuterol/Ipratropium (Duoneb -) 1 amp NEB RQID [facility] Last Admin: 02/10/19 12:28 Dose: Not Given Amlodipine Besylate (Norvasc -) 5 mg PO DAILY [facility] Last Admin: 02/10/19 09:19 Dose: 5 mg Aspirin (Asa -) 81 mg PO DAILY [facility] Last Admin: 02/10/19 09:19 Dose: 81 mg Finasteride (Proscar -) 5 mg PO DAILY [facility] Last Admin: 02/10/19 09:19 Dose: 5 mg Guaifenesin (Diabetic Tussin Dm -) 10 ml PO Q4H PRN PRN Reason: COUGH Last Admin: 02/09/19 21:29 Dose: 10 ml Hydrochlorothiazide (Hctz -) 25 mg PO DAILY [facility] Hydrochlorothiazide (Hctz -) 25 mg PO DAILY [facility] Ampicillin Sodium/Sulbactam (Sodium 1.5 gm/ Sodium Chloride) 100 mls @ 200 mls/ hr IVPB Q8H-IV [facility] Last Admin: 02/10/19 09:19 Dose: 200 mls/hr Insulin Aspart (Novolog Vial Sliding Scale -) 1 vial SQ ACHS [facility]; Protocol Last Admin: 02/10/19 11:51 Dose: 2 units Methylprednisolone Sodium Succinate (Solu-Medrol -) 60 mg IVPUSH Q8H-IV [facility] Last Admin: 02/10/19 09:40 Dose: 60 mg Pantoprazole Sodium (Protonix -) 40 mg PO DAILY [facility] Last Admin: 02/10/19 09:19 Dose: 40 mg Sitagliptin Phosphate (Januvia -) 25 mg PO DAILY@0700 [facility] Last Admin: 02/10/19 06:52 Dose: 25 mg Sitagliptin Phosphate (Januvia -) 50 mg PO DAILY@0700 [facility] Last Admin: 02/10/19 06:51 Dose: 50 mg Terazosin HCl (Hytrin -) 5 mg PO HS [facility] Last Admin: 02/09/19 21:29 Dose: 5 mg - Objective Vital Signs: Vital Signs Temperature 98.5 F 02/10/19 14:00 Pulse Rate 81 02/10/19 14:00 Respiratory Rate 20 02/10/19 14:00 Blood Pressure 129/97 02/10/19 14:00 O2 Sat by Pulse Oximetry (%) 94 L 02/10/19 09:00 Labs: CBC, BMP 02/07/19 08:40 02/10/19 07:56 INR, PTT INR 1.01 (0.83-1.09) 02/06/19 18:16 Problem List - Problems (1) COPD (chronic obstructive pulmonary disease) Code(s): J44.9 - CHRONIC OBSTRUCTIVE PULMONARY DISEASE, UNSPECIFIED (2) Acute kidney injury superimposed on CKD Code(s): N17.9 - ACUTE KIDNEY FAILURE, UNSPECIFIED; N18.9 - CHRONIC KIDNEY DISEASE, UNSPECIFIED (3) Diabetes mellitus Code(s): E11.9 - TYPE 2 DIABETES MELLITUS WITHOUT COMPLICATIONS (4) Diabetes mellitus type 2 in obese Code(s): E11.69 - TYPE 2 DIABETES MELLITUS WITH OTHER SPECIFIED COMPLICATION; E66.9 - OBESITY, UNSPECIFIED
[2019-02-10] MEDS: HYDROCHLOROTHIAZIDE 25 MG TABLET (FP) PO SCH (17:54)
[2019-02-10] MEDS: TERAZOSIN HCL 5 MG CAPSULE PO SCH (21:23)
[2019-02-10] MEDS ORDERED: FUROSEMIDE 40 MG/4 ML INJECTABLE VIAL IVPUSH ONE (23:27)
[2019-02-11] MEDS ORDERED: SODIUM CHLORIDE 100 ML IVPB ONE ×3 (00:55→18:49)
[2019-02-11] MEDS ORDERED: AMPICILLIN NA/SULBACTAM NA 1.5 GM VIAL ONE ×3 (00:55→18:49)
[2019-02-11] MEDS: AMPICILLIN NA/SULBACTAM NA 1.5 GM in SODIUM CHLORIDE 100 ML IVPB SCH ×3 (01:44→18:51)
[2019-02-11] MEDS: methylPREDNISolone NA SUCC 40 MG/1 ML VIAL IVPUSH SCH ×3 (01:44→18:52)
[2019-02-11] MEDS: sitaGLIPtin PHOSPHATE 50 MG TABLET PO SCH (06:54)
[2019-02-11] MEDS: INSULIN SLIDING SCALE (NOVOLOG) 1 VIAL SQ SCH ×4 (06:55→21:48)
[2019-02-11] MEDS ORDERED: INSULIN (NOVOLOG) ASPART 100 UNITS/ML 10ML VIAL ONE ×2 (07:02→11:56)
[2019-02-11] MEDS: ALBUTEROL SO4 2.5/IPRATROPIUM 0.5 INH SOL 3 ML VIAL.NEB. NEB SCH ×4 (09:00→20:30)
[2019-02-11] MEDS ORDERED: FUROSEMIDE 40 MG/4 ML INJECTABLE VIAL IVPUSH ONE (09:06)
--- NOTE | 2019-02-11 09:09 | PN ---
Progress Note, Physician Chief Complaint: cough improved, orthopnea better - Current Medication List Current Medications: Active Medications Albuterol/Ipratropium (Duoneb -) 1 amp NEB RQID [facility] Last Admin: 02/10/19 20:15 Dose: 1 amp Amlodipine Besylate (Norvasc -) 5 mg PO DAILY [facility] Last Admin: 02/10/19 09:19 Dose: 5 mg Aspirin (Asa -) 81 mg PO DAILY [facility] Last Admin: 02/10/19 09:19 Dose: 81 mg Finasteride (Proscar -) 5 mg PO DAILY [facility] Last Admin: 02/10/19 09:19 Dose: 5 mg Furosemide (Lasix Injection -) 40 mg IVPUSH ONCE ONE Stop: 02/11/19 09:07 Guaifenesin (Diabetic Tussin Dm -) 10 ml PO Q4H PRN PRN Reason: COUGH Last Admin: 02/09/19 21:29 Dose: 10 ml Hydrochlorothiazide (Hctz -) 25 mg PO DAILY [facility] Last Admin: 02/10/19 17:54 Dose: 25 mg Ampicillin Sodium/Sulbactam (Sodium 1.5 gm/ Sodium Chloride) 100 mls @ 200 mls/ hr IVPB Q8H-IV [facility] Last Admin: 02/11/19 01:44 Dose: 200 mls/hr Insulin Aspart (Novolog Vial Sliding Scale -) 1 vial SQ ACHS [facility]; Protocol Last Admin: 02/11/19 06:55 Dose: 2 units Methylprednisolone Sodium Succinate (Solu-Medrol -) 60 mg IVPUSH Q8H-IV [facility] Last Admin: 02/11/19 01:44 Dose: 60 mg Pantoprazole Sodium (Protonix -) 40 mg PO DAILY [facility] Last Admin: 02/10/19 09:19 Dose: 40 mg Sitagliptin Phosphate (Januvia -) 50 mg PO DAILY@0700 [facility] Last Admin: 02/11/19 06:54 Dose: 50 mg Terazosin HCl (Hytrin -) 5 mg PO HS [facility] Last Admin: 02/10/19 21:23 Dose: 5 mg - Objective Vital Signs: Vital Signs Temperature 97.8 F 02/11/19 08:51 Pulse Rate 76 02/11/19 08:51 Respiratory Rate 18 02/11/19 08:51 Blood Pressure 136/79 02/11/19 08:51 O2 Sat by Pulse Oximetry (%) 94 L 02/10/19 21:00 Constitutional: Yes: No Distress, Calm Eyes: Yes: Conjunctiva Clear, EOM Intact HENT: Yes: Atraumatic, Normocephalic Neck: Yes: Supple, Trachea Midline Cardiovascular: Yes: Regular Rate and Rhythm, S1, S2 Respiratory: Yes: Regular, CTA Bilaterally, On Nasal O2 Gastrointestinal: Yes: Normal Bowel Sounds, Soft, Abdomen, Obese. No: Hepatomegaly, Splenomegaly ...Rectal Exam: Yes: Deferred Genitourinary: Yes: WNL Extremities: No: Calf Tenderness Edema: Yes Edema: LLE: 2+, RLE: 2+ Peripheral Pulses WNL: Yes Neurological: Yes: Alert, Oriented Psychiatric: Yes: Alert, Oriented Labs: CBC, BMP 02/07/19 08:40 02/10/19 07:56 INR, PTT INR 1.01 (0.83-1.09) 02/06/19 18:16 - ....Imaging Chest X-ray: Other (hilar congestion) Problem List - Problems (1) COPD (chronic obstructive pulmonary disease) Code(s): J44.9 - CHRONIC OBSTRUCTIVE PULMONARY DISEASE, UNSPECIFIED (2) Acute kidney injury superimposed on CKD Code(s): N17.9 - ACUTE KIDNEY FAILURE, UNSPECIFIED; N18.9 - CHRONIC KIDNEY DISEASE, UNSPECIFIED (3) Diabetes mellitus Code(s): E11.9 - TYPE 2 DIABETES MELLITUS WITHOUT COMPLICATIONS (4) Diabetes mellitus type 2 in obese Code(s): E11.69 - TYPE 2 DIABETES MELLITUS WITH OTHER SPECIFIED COMPLICATION; E66.9 - OBESITY, UNSPECIFIED (5) CHF (congestive heart failure) Assessment/Plan: started LAsix 40 mg iv daily Code(s): I50.9 - HEART FAILURE, UNSPECIFIED Qualifiers: Heart failure type: right-sided Heart failure chronicity: acute on chronic Qualified Code(s): I50.813 - Acute on chronic right heart failure
[2019-02-11] MEDS: FINASTERIDE 5 MG TABLET (FP) PO SCH (09:21)
[2019-02-11] MEDS: PANTOPRAZOLE 40 MG TABLET (FP) PO SCH (09:21)
[2019-02-11] MEDS: ASPIRIN 81 MG CHEWABLE TABLETS PO SCH (09:21)
[2019-02-11] MEDS: HYDROCHLOROTHIAZIDE 25 MG TABLET (FP) PO SCH (09:21)
[2019-02-11] MEDS: amLODIPine BESYLATE 5 MG TABLET (FP) PO SCH (09:21)
[2019-02-11] MEDS ORDERED: HYDROCHLOROTHIAZIDE 25 MG TABLET (FP) PO SCH (10:00)
[2019-02-11] MEDS: TERAZOSIN HCL 5 MG CAPSULE PO SCH (21:48)
[2019-02-11] MEDS: guaiFENesin/D-M SUGAR-FREE/ACLHOL-FREE 118 ML BOTTLE PO PRN (21:48)
[2019-02-12] MEDS ORDERED: SODIUM CHLORIDE 100 ML IVPB ONE ×3 (02:34→16:43)
[2019-02-12] MEDS ORDERED: AMPICILLIN NA/SULBACTAM NA 1.5 GM VIAL ONE ×3 (02:34→16:43)
[2019-02-12] MEDS: AMPICILLIN NA/SULBACTAM NA 1.5 GM in SODIUM CHLORIDE 100 ML IVPB SCH ×3 (03:01→17:05)
[2019-02-12] MEDS: methylPREDNISolone NA SUCC 40 MG/1 ML VIAL IVPUSH SCH ×3 (03:01→17:04)
[2019-02-12] MEDS: sitaGLIPtin PHOSPHATE 50 MG TABLET PO SCH (06:53)
[2019-02-12] MEDS: INSULIN SLIDING SCALE (NOVOLOG) 1 VIAL SQ SCH ×4 (06:53→21:51)
[2019-02-12] MEDS: ALBUTEROL SO4 2.5/IPRATROPIUM 0.5 INH SOL 3 ML VIAL.NEB. NEB SCH ×4 (08:40→20:15)
[2019-02-12 09:14] LABS: ALBUMIN 3.4 g/dl (3.4-5.0); BILIRUBIN,TOTAL 0.4 mg/dL (0.2-1); BLOOD UREA NITROGEN 44.9 mg/dL (7-18); CALCIUM 8.7 mg/dL (8.5-10.1); POTASSIUM 3.2 mmol/L (3.5-5.1); TOT PROT 6.6 g/dl (6.4-8.2)
[2019-02-12] MEDS ORDERED: PT OWN MED DRAWER 7, Y5N ONE ×2 (09:50→10:58)
[2019-02-12] MEDS ORDERED: POTASSIUM CHLORIDE ORAL LIQUID 20 MEQ/15 ML PO ONE (10:04)
[2019-02-12] MEDS: amLODIPine BESYLATE 5 MG TABLET (FP) PO SCH (10:39)
[2019-02-12] MEDS: HYDROCHLOROTHIAZIDE 25 MG TABLET (FP) PO SCH (10:41)
[2019-02-12] MEDS: PANTOPRAZOLE 40 MG TABLET (FP) PO SCH (10:41)
[2019-02-12] MEDS: FINASTERIDE 5 MG TABLET (FP) PO SCH (10:42)
[2019-02-12] MEDS: ASPIRIN 81 MG CHEWABLE TABLETS PO SCH (10:42)
[2019-02-12] MEDS ORDERED: POTASSIUM CHLORIDE TABS 20 MEQ TABLET.ER (FP) PO ONE (11:00)
[2019-02-12] MEDS ORDERED: FUROSEMIDE 40 MG/4 ML INJECTABLE VIAL IVPUSH ONE (15:14)
--- NOTE | 2019-02-12 15:18 | PN ---
Progress Note, Physician Chief Complaint: cough improved, orthopnea better edema of the lower extremities decreased History of Present Illness: 72 yo male admitted with persisiting cough not responding to oral antibiotics,, He improved on iv antibiotics and administration of iv Lasix. His effort dyspnea resolved and his cough is sporadic and not productive - Current Medication List Current Medications: Active Medications Albuterol/Ipratropium (Duoneb -) 1 amp NEB RQID [facility] Last Admin: 02/12/19 12:13 Dose: 1 amp Amlodipine Besylate (Norvasc -) 5 mg PO DAILY [facility] Last Admin: 02/12/19 10:39 Dose: 5 mg Aspirin (Asa -) 81 mg PO DAILY [facility] Last Admin: 02/12/19 10:42 Dose: 81 mg Finasteride (Proscar -) 5 mg PO DAILY [facility] Last Admin: 02/12/19 10:42 Dose: 5 mg Furosemide (Lasix Injection -) 40 mg IVPUSH ONCE ONE Stop: 02/12/19 15:15 Guaifenesin (Diabetic Tussin Dm -) 10 ml PO Q4H PRN PRN Reason: COUGH Last Admin: 02/11/19 21:48 Dose: 10 ml Ampicillin Sodium/Sulbactam (Sodium 1.5 gm/ Sodium Chloride) 100 mls @ 200 mls/ hr IVPB Q8H-IV [facility] Last Admin: 02/12/19 10:42 Dose: 200 mls/hr Insulin Aspart (Novolog Vial Sliding Scale -) 1 vial SQ ACHS [facility]; Protocol Last Admin: 02/12/19 11:51 Dose: 2 units Methylprednisolone Sodium Succinate (Solu-Medrol -) 60 mg IVPUSH Q8H-IV [facility] Last Admin: 02/12/19 10:38 Dose: 60 mg Pantoprazole Sodium (Protonix -) 40 mg PO DAILY [facility] Last Admin: 02/12/19 10:41 Dose: 40 mg Potassium Chloride (K-Dur -) 40 meq PO DAILY [facility] Sitagliptin Phosphate (Januvia -) 50 mg PO DAILY@0700 [facility] Last Admin: 02/12/19 06:53 Dose: 50 mg Terazosin HCl (Hytrin -) 5 mg PO HS [facility] Last Admin: 02/11/19 21:48 Dose: 5 mg - Objective Vital Signs: Vital Signs Temperature 98.6 F 02/12/19 10:16 Pulse Rate 74 02/12/19 10:16 Respiratory Rate 20 02/12/19 10:16 Blood Pressure 140/75 02/12/19 10:16 O2 Sat by Pulse Oximetry (%) 95 02/11/19 21:00 Constitutional: Yes: No Distress, Calm Eyes: Yes: Conjunctiva Clear, EOM Intact HENT: Yes: Atraumatic, Normocephalic Neck: Yes: Supple, Trachea Midline Cardiovascular: Yes: Regular Rate and Rhythm, S1, S2 Respiratory: No: Orthopnea, Rales, SOB, SOB on Exertion, Wheezes Genitourinary: Yes: WNL Extremities: No: Calf Tenderness Edema: No Peripheral Pulses WNL: Yes Psychiatric: Yes: Alert, Oriented Labs: CBC, BMP 02/07/19 08:40 02/12/19 07:46 INR, PTT INR 1.01 (0.83-1.09) 02/06/19 18:16 Problem List - Problems (1) COPD (chronic obstructive pulmonary disease) Assessment/Plan: change SoluMedrol 60 mg iv every 12hours Unasyn iv every 8 hours Duo Neb every 6 hours Code(s): J44.9 - CHRONIC OBSTRUCTIVE PULMONARY DISEASE, UNSPECIFIED (2) Acute kidney injury superimposed on CKD Assessment/Plan: gentle hydration repeat labs in am Code(s): N17.9 - ACUTE KIDNEY FAILURE, UNSPECIFIED; N18.9 - CHRONIC KIDNEY DISEASE, UNSPECIFIED (3) Diabetes mellitus Assessment/Plan: stop MEtformin due to AKD start Januvia 25 mg daily Insulin as needed AC and HS Code(s): E11.9 - TYPE 2 DIABETES MELLITUS WITHOUT COMPLICATIONS (4) CHF (congestive heart failure) Assessment/Plan: add Hydrochloprothiazide 25 mg daily LAsix 40 mg iv one dose Code(s): I50.9 - HEART FAILURE, UNSPECIFIED Qualifiers: Heart failure type: diastolic Heart failure chronicity: acute on chronic Qualified Code(s): I50.33 - Acute on chronic diastolic (congestive) heart failure
[2019-02-12] MEDS: TERAZOSIN HCL 5 MG CAPSULE PO SCH (21:51)
[2019-02-13] MEDS ORDERED: SODIUM CHLORIDE 100 ML IVPB ONE ×2 (01:56→08:39)
[2019-02-13] MEDS ORDERED: AMPICILLIN NA/SULBACTAM NA 1.5 GM VIAL ONE ×2 (01:56→08:39)
[2019-02-13] MEDS: AMPICILLIN NA/SULBACTAM NA 1.5 GM in SODIUM CHLORIDE 100 ML IVPB SCH ×2 (02:41→09:39)
[2019-02-13] MEDS: methylPREDNISolone NA SUCC 40 MG/1 ML VIAL IVPUSH SCH ×2 (02:41→09:28)
[2019-02-13] MEDS: sitaGLIPtin PHOSPHATE 50 MG TABLET PO SCH (06:37)
[2019-02-13] MEDS: INSULIN SLIDING SCALE (NOVOLOG) 1 VIAL SQ SCH ×2 (06:37→11:36)
[2019-02-13] MEDS: ALBUTEROL SO4 2.5/IPRATROPIUM 0.5 INH SOL 3 ML VIAL.NEB. NEB SCH ×2 (07:45→11:35)
[2019-02-13] MEDS ORDERED: PT OWN MED DRAWER 7, Y5N ONE (08:38)
[2019-02-13 08:48] LABS: BILIRUBIN,TOTAL 0.4 mg/dL (0.2-1); BLOOD UREA NITROGEN 46.2 mg/dL (7-18); CALCIUM 8.8 mg/dL (8.5-10.1); CREATININE 1.8 mg/dL (0.55-1.3); POTASSIUM 3.5 mmol/L (3.5-5.1)
[2019-02-13] MEDS: amLODIPine BESYLATE 5 MG TABLET (FP) PO SCH (09:29)
[2019-02-13] MEDS: FINASTERIDE 5 MG TABLET (FP) PO SCH (09:29)
[2019-02-13] MEDS: PANTOPRAZOLE 40 MG TABLET (FP) PO SCH (09:29)
[2019-02-13] MEDS: ASPIRIN 81 MG CHEWABLE TABLETS PO SCH (09:29)
[2019-02-13] MEDS ORDERED: POTASSIUM CHLORIDE TABS 20 MEQ TABLET.ER (FP) PO SCH (10:00)
[2019-02-13 10:02] VITALS: BP 137/81; PULSE 72; TEMP 98.4
[2019-02-13] MEDS ORDERED: FUROSEMIDE 40 MG/4 ML INJECTABLE VIAL IVPUSH ONE (10:18)
[2019-02-13 15:07] VITALS: BMI 35.5
[2019-02-13] MEDS ORDERED: AMOX TR/POT CLAV 875MG/125MG TABLETS (FP) PO SCH (17:30)
[2019-02-14] MEDS ORDERED: predniSONE 20 MG TABLET (UD) PO SCH (10:00)
--- NOTE | 2019-03-10 14:43 | DS ---
Physical Examination Vital Signs: Vital Signs Temperature 98.4 F 02/13/19 10:01 Pulse Rate 72 02/13/19 10:01 Respiratory Rate 20 02/13/19 10:01 Blood Pressure 137/81 02/13/19 10:01 O2 Sat by Pulse Oximetry (%) 95 02/13/19 09:00 Constitutional: Yes: No Distress, Calm Eyes: Yes: Conjunctiva Clear, EOM Intact HENT: Yes: Atraumatic, Normocephalic Neck: Yes: Supple, Trachea Midline Cardiovascular: Yes: Regular Rate and Rhythm, S1, S2 Respiratory: Yes: Regular, CTA Bilaterally Gastrointestinal: Yes: Normal Bowel Sounds, Soft, Abdomen, Obese. No: Splenomegaly, Tenderness, Epigastrium, Tenderness, Rebound Extremities: No: Amputation, Calf Tenderness Edema: No Psychiatric: Yes: Alert, Oriented Labs: CBC, BMP 02/07/19 08:40 02/13/19 06:00 Discharge Summary Problems reviewed: Yes Reason For Visit: ACUTE KIDNEY INJURY,UPPER RESPIRATORY TRACT INFECT Hospital Course: 73 yo male admitted with cough, dyspnea and wheezing not improving to administration of po antibiotics and bronchodilators. The patient was found to have exacerbation of COPd and diastolic CHF acute on chronic. He received iv Unasyn, SoluMedrol and iv diuretics, His kidney function was also decreased with GUS on CKD. After IV hydration his kidney function revered to baseline. He is discharged with taper dosage of prednisone, 5 days treatment of Augmentin and short term followup in office. He will start Januvia ,and stop Glucophage and Trulicity. Condition: Stable - Instructions Disposition: HOME - Home Medications Comprehensive Discharge Medication List: Ambulatory Orders Amlodipine Besylate [Norvasc -] 5 mg PO DAILY 04/10/12 Cholecalciferol (Vitamin D3) [Vitamin D3] 2,000 unit PO DAILY 04/10/12 Finasteride 5 mg PO DAILY 04/10/12 Terazosin HCl [Hytrin -] 10 mg PO DAILY 04/10/12 Aspirin 81 mg PO DAILY 04/11/17 Amlodipine Besylate [Norvasc -] 5 mg PO DAILY tablet 02/13/19 Amox-Tr/K Cl [Augmentin 875-125mg Tablet -] 1 tab PO BID@0800,1730 #10 tablet Aspirin [ASA -] 81 mg PO DAILY tab.chew 02/13/19 Finasteride [Proscar -] 5 mg PO DAILY tablet 02/13/19 Pantoprazole Sodium [Protonix -] 40 mg PO DAILY tablet.ec 02/13/19 Potassium Chloride [K-Dur -] 40 meq PO DAILY #90 tablet.er 02/13/19 Sitagliptin Phosphate [Januvia -] 50 mg PO DAILY@0700 #90 tablet 02/13/19 Terazosin HCl [Hytrin -] 5 mg PO HS capsule 02/13/19 predniSONE [Deltasone -] 60 mg PO DAILY #44 tablet 02/13/19
== END 2019-02-13 13:49 | disposition home or self-care (01) | DRG 682 ==
LOC: JER 15:18 → JERBED 19:17 → J5S 22:27
PROVIDERS: ADMIT Internal Medicine; ATTEND Internal Medicine
DX: N17.9 Acute kidney failure, unspecified (principal); I50.33 Acute on chronic diastolic (congestive) heart failure; I13.0 Hypertensive heart and chronic kidney disease with heart failure and stage 1 through stage 4 chronic kidney disease, or unspecified chronic kidney disease; J44.1 Chronic obstructive pulmonary disease with (acute) exacerbation; N18.9 Chronic kidney disease, unspecified; E11.22 Type 2 diabetes mellitus with diabetic chronic kidney disease; I50.813 Acute on chronic right heart failure; E78.5 Hyperlipidemia, unspecified; K21.9 Gastro-esophageal reflux disease without esophagitis; J06.9 Acute upper respiratory infection, unspecified; F41.8 Other specified anxiety disorders; R00.0 Tachycardia, unspecified; E66.9 Obesity, unspecified; Z68.35 Body mass index [BMI] 35.0-35.9, adult; Z86.73 Personal history of transient ischemic attack (TIA), and cerebral infarction without residual deficits; Z96.642 Presence of left artificial hip joint; Z85.038 Personal history of other malignant neoplasm of large intestine
CPT/HCPCS: 36415; 71045-TC-FY; 71048-TC-FY; 80053; 81003; 82803; 82962; 83605; 83880; 85025; 85610; 85730; 87040; 87086; 87186; 93005; 93010; 94640; 99285-25; J0131; J7030

== ENCOUNTER 2020-05-03 11:30 | Emergency (ER) | payer OTHER, MEDICARE | END 2020-05-03 11:53 | disposition home or self-care (01) | LOC: JVIRT 11:30 | DX: Z20.822 Contact with and (suspected) exposure to COVID-19 (principal) | CPT/HCPCS: C9803; G2251-GT; U0003 ==

== ENCOUNTER 2020-09-10 18:36 | Inpatient (IN) | payer OTHER, MEDICARE ==
[2020-09-10 18:48] VITALS: BMI 33.5
[2020-09-10] MEDS ORDERED: METOCLOPRAMIDE HCL INJECTION 10 MG/2 ML VIAL IVPUSH ONE (19:41)
[2020-09-10] MEDS ORDERED: ACETAMINOPHEN 1000 MG/100 ML VIAL (NON FORMULARY) IVPB ONE (19:41)
[2020-09-10] MEDS ORDERED: LACTATED RINGERS SOLUTION 1000 ML INFUS.BAG IV ONE (19:41)
[2020-09-10] MEDS ORDERED: METOCLOPRAMIDE HCL INJECTION 10 MG/2 ML VIAL ONE (19:44)
[2020-09-10] MEDS ORDERED: ACETAMINOPHEN INJECTION 100 ML IVPB ONE (19:44)
[2020-09-10 20:20] LABS: BASO % 0.9 % (0-2.0); EOS % 2.5 % (0-4.5); HEMATOCRIT 39.5 % (35.4-49); HEMOGLOBIN 12.6 GM/dL (11.7-16.9); LYMPH % 22.3 % (8-40); MCH 27.4 pg (25.7-33.7); MEAN CELL VOLUME 85.8 fl (80-96); MEAN PLT VOLUME 7.5 fl (7.5-11.1); MONO % 9.9 % (3.8-10.2); NEUT % 64.4 % (42.8-82.8); PLATELET COUNT 189 10^3/uL (134-434); RBC 4.61 M/mm3 (4.00-5.60); RDW 16.3 % (11.9-15.9); WHITE BLOOD COUNT 7.9 K/mm3 (4.0-10.0)
[2020-09-10 20:22] LABS: EPI CELLS 3 /uL (0-25.1); HYALINE CASTS 1 /uL (0-3.1); PH,URINE 5.5 (5.0-8.0); URINE APPEARANCE CLEAR; URINE BACTERIA 4 /uL (0-1359); URINE BILIRUBIN NEGATIVE (NEGATIVE); URINE COLOR YELLOW; URINE GLUCOSE (UA) 3+ (NEGATIVE); URINE KETONE NEGATIVE (NEGATIVE); URINE LEUK ESTERASE NEGATIVE (NEGATIVE); URINE NITRITE NEGATIVE (NEGATIVE); URINE PROTEIN 3+ (NEGATIVE); URINE RBC 7 /uL (0-23.9); URINE WBC 17 /uL (0-25.8)
[2020-09-10 20:49] LABS: ALBUMIN 3.8 g/dl (3.4-5.0); BLOOD UREA NITROGEN 28.2 mg/dL (7-18); CALCIUM 8.8 mg/dL (8.5-10.1)
[2020-09-10 20:53] LABS: CREATININE 2.3 mg/dL (0.55-1.3)
[2020-09-10 20:54] LABS: BILIRUBIN,TOTAL 0.5 mg/dL (0.2-1)
[2020-09-10] MEDS ORDERED: ASPIRIN 325 MG TABLET PO ONE (21:55)
[2020-09-10] MEDS ORDERED: ASPIRIN 81 MG CHEWABLE TABLETS ONE (22:07)
[2020-09-10] MEDS ORDERED: FUROSEMIDE 40 MG/4 ML INJECTABLE VIAL IVPUSH ONE (22:09)
[2020-09-10] MEDS ORDERED: FUROSEMIDE 40 MG/4 ML INJECTABLE VIAL ONE (22:19)
[2020-09-10] MEDS ORDERED: ATORVASTATIN CA 80 MG TABLET (FP) PO ONE (22:34)
[2020-09-10 22:37] LABS: N-TERMINAL BNP 6962.7 pg/ml (5-125)
[2020-09-10] MEDS ORDERED: ATORVASTATIN CA 80 MG TABLET (FP) ONE (22:39)
[2020-09-10 22:59] LABS: INR 1.02 (0.83-1.09); PROTHROMBIN TIME (PATIENT) 12.3 SEC (9.7-13.0)
[2020-09-10 23:01] LABS: ACTIVATED PTT 28.1 SECONDS (25.2-36.5)
[2020-09-10] MEDS ORDERED: ACETAMINOPHEN 325 MG TABLET (FP) PO PRN (23:06)
[2020-09-10] MEDS ORDERED: METOCLOPRAMIDE HCL INJECTION 10 MG/2 ML VIAL IVPUSH PRN (23:12)
[2020-09-10 23:13] LABS: N-TERMINAL BNP 7436.2 pg/ml (5-125)
[2020-09-11 06:39] VITALS: TEMP 97.6
[2020-09-11 07:09] LABS: BASO % 0.8 % (0-2.0); HEMATOCRIT 38.8 % (35.4-49); HEMOGLOBIN 12.3 GM/dL (11.7-16.9); LYMPH % 23.3 % (8-40); MCH 27.2 pg (25.7-33.7); MCHC 31.7 g/dl (32.0-35.9); MEAN CELL VOLUME 86.1 fl (80-96); MEAN PLT VOLUME 7.8 fl (7.5-11.1); MONO % 12.5 % (3.8-10.2); NEUT % 60.4 % (42.8-82.8); PLATELET COUNT 187 10^3/uL (134-434); RBC 4.51 M/mm3 (4.00-5.60); RDW 16.2 % (11.9-15.9); WHITE BLOOD COUNT 6.1 K/mm3 (4.0-10.0)
[2020-09-11] MEDS: INSULIN SLIDING SCALE (NOVOLOG) 1 VIAL SQ SCH ×2 (07:21→11:00)
[2020-09-11 07:39] LABS: ALBUMIN 3.6 g/dl (3.4-5.0); CREATININE 2.4 mg/dL (0.55-1.3); MAGNESIUM 2.2 mg/dL (1.8-2.4)
[2020-09-11 07:41] LABS: TOT PROT 6.6 g/dl (6.4-8.2)
[2020-09-11 07:46] LABS: BLOOD UREA NITROGEN 28.3 mg/dL (7-18)
[2020-09-11 07:47] LABS: PHOSPHOROUS 3.7 mg/dL (2.5-4.9)
[2020-09-11 07:48] LABS: BILIRUBIN,TOTAL 0.4 mg/dL (0.2-1)
[2020-09-11] MEDS ORDERED: ASPIRIN COATED 81 MG TABLET.EC ONE (09:46)
[2020-09-11] MEDS ORDERED: ENOXAPARIN NA (PORCINE) 40 MG/0.4 ML DISP.SYRIN SQ ONE (09:46)
[2020-09-11] MEDS ORDERED: ASPIRIN COATED 81 MG TABLET.EC PO SCH (10:00)
[2020-09-11] MEDS ORDERED: ENOXAPARIN NA (PORCINE) 40 MG/0.4 ML DISP.SYRIN SQ SCH (10:00)
[2020-09-11 12:13] VITALS: BP 180/103; PULSE 81
[2020-09-11] MEDS ORDERED: ATORVASTATIN CA 80 MG TABLET (FP) PO SCH (22:00)
== END 2020-09-11 12:50 | disposition left against medical advice (07) | DRG 65 ==
LOC: JER 18:36 → JERBED 21:20
PROVIDERS: ADMIT Internal Medicine; ATTEND Internal Medicine
DX: I63.9 Cerebral infarction, unspecified (principal); N17.9 Acute kidney failure, unspecified; I13.0 Hypertensive heart and chronic kidney disease with heart failure and stage 1 through stage 4 chronic kidney disease, or unspecified chronic kidney disease; I50.30 Unspecified diastolic (congestive) heart failure; R51.9 Headache, unspecified; E78.5 Hyperlipidemia, unspecified; E11.22 Type 2 diabetes mellitus with diabetic chronic kidney disease; N18.9 Chronic kidney disease, unspecified
CPT/HCPCS: 36415; 70450-TC; 70551-TC; 71045-TC-FY; 76775-TC; 80053; 80061; 81003; 82962; 83036; 83721; 83735; 83880; 84100; 84484; 85025; 85610; 85730; 93005; 93010; 99291; C9803; J0131; U0003; U0005

== ENCOUNTER 2022-07-09 08:57 | Inpatient (IN) | payer OTHER, MEDICARE ==
[2022-07-09] MEDS ORDERED: morphine CARPU-JECT 4 MG/1 ML DISP.SYRIN IVPUSH ONE (10:10)
[2022-07-09] MEDS ORDERED: morphine SULFATE 4 MG/ML VIAL ONE (10:36)
[2022-07-09 11:17] LABS: INR 1.04 (0.83-1.09)
[2022-07-09 11:21] LABS: HEMOGLOBIN 11.2 G/dL (11.7-16.9); MCH 28.2 pg (25.7-33.7); MCHC 31.9 g/dl (32.0-35.9); MEAN CELL VOLUME 88.5 fl (80-96); MEAN PLT VOLUME 8.1 fl (7.5-11.1); PLATELET COUNT 198.2 10^3/uL (134-434); RBC 3.96 10^6/uL (4.00-5.60); RDW 16.2 % (11.9-15.9); WHITE BLOOD COUNT 7.2 10^3/uL (4.0-10.8)
[2022-07-09 11:27] LABS: ALBUMIN 3.7 g/dl (3.4-5.0); BILIRUBIN,TOTAL 0.3 mg/dl (0.2-1); CALCIUM 8.8 mg/dl (8.5-10); CREATININE 2.4 mg/dl (0.55-1.3); POTASSIUM 4.2 mmol/L (3.5-5.1); TOT PROT 6.5 g/dl (6.4-8.2)
[2022-07-09 12:21] LABS: PLATELET ESTIMATE ADEQUATE
[2022-07-09 16:03] VITALS: RESP 18
[2022-07-09 16:38] VITALS: BMI 30.7
[2022-07-09] MEDS: oxyCODONE HCL 5 MG TABLET PO PRN (18:53)
[2022-07-09] MEDS ORDERED: morphine SULFATE 4 MG/ML VIAL IVPUSH ONE (22:15)
[2022-07-09] MEDS: METOPROLOL TARTRATE 50 MG TABLET (FP) PO SCH (22:34)
[2022-07-09] MEDS: INSULIN SLIDING SCALE (NOVOLOG) 1 VIAL SQ SCH (22:34)
[2022-07-10] MEDS: oxyCODONE HCL 5 MG TABLET PO PRN ×2 (05:27→18:43)
[2022-07-10] MEDS: INSULIN SLIDING SCALE (NOVOLOG) 1 VIAL SQ SCH ×4 (06:35→22:57)
[2022-07-10] MEDS ORDERED: D5-1/2NS+10 MEQ KCL - 10 MEQ/1,000 ML INFUS.BAG IV SCH ×2 (09:00→10:25)
[2022-07-10] MEDS: METOPROLOL TARTRATE 50 MG TABLET (FP) PO SCH ×2 (10:41→21:41)
[2022-07-10] MEDS ORDERED: morphine SULFATE 4 MG/ML VIAL IVPB PRN (13:38)
[2022-07-10] MEDS ORDERED: ACETAMINOPHEN 1000 MG/100 ML BAG IVPB PRN (13:39)
[2022-07-10] MEDS: HEPARIN NA (PORCINE) 5,000 UNITS/ML 1ML VIAL SQ SCH ×2 (14:35→21:41)
[2022-07-10 15:30] LABS: POTASSIUM 4.1 mmol/L (3.5-5.1)
[2022-07-10 15:31] LABS: CALCIUM 8.8 mg/dL (8.5-10.1)
[2022-07-10 15:32] LABS: ALBUMIN 3.1 g/dl (3.4-5.0); BLOOD UREA NITROGEN 32.6 mg/dL (7-18)
[2022-07-10 15:35] LABS: CREATININE 2.2 mg/dL (0.55-1.3)
[2022-07-10 15:37] LABS: BILIRUBIN,TOTAL 0.5 mg/dL (0.2-1); TOT PROT 6.2 g/dl (6.4-8.2)
[2022-07-10 18:15] LABS: INR 1.11 (0.83-1.09); PROTHROMBIN TIME (PATIENT) 12.8 SEC (9.7-13.0)
[2022-07-10 18:17] LABS: ACTIVATED PTT 29.4 SECONDS (25.2-36.5)
[2022-07-11] MEDS: oxyCODONE HCL 5 MG TABLET PO PRN ×4 (06:19→22:16)
[2022-07-11] MEDS: HEPARIN NA (PORCINE) 5,000 UNITS/ML 1ML VIAL SQ SCH ×3 (06:19→22:16)
[2022-07-11] MEDS: INSULIN SLIDING SCALE (NOVOLOG) 1 VIAL SQ SCH ×4 (07:11→22:22)
[2022-07-11 09:02] LABS: ALBUMIN 2.9 g/dl (3.4-5.0); BILIRUBIN,TOTAL 0.4 mg/dl (0.2-1); CALCIUM 8.8 mg/dl (8.5-10); CREATININE 2.4 mg/dl (0.55-1.3); POTASSIUM 4.2 mmol/L (3.5-5.1); TOT PROT 5.8 g/dl (6.4-8.2)
[2022-07-11] MEDS: METOPROLOL TARTRATE 50 MG TABLET (FP) PO SCH ×2 (09:54→22:16)
[2022-07-11] MEDS: ISOSORBIDE MONONITRATE 30 MG TAB.SR.24H (FP) PO SCH (09:54)
[2022-07-11] MEDS: VENLAFAXINE HCL 37.5 MG E.R. CAPSULE PO SCH (09:54)
[2022-07-11] MEDS: amLODIPine BESYLATE 10 MG TABLET (FP) PO SCH (09:54)
[2022-07-12] MEDS: HEPARIN NA (PORCINE) 5,000 UNITS/ML 1ML VIAL SQ SCH ×3 (06:14→22:00)
[2022-07-12] MEDS: INSULIN SLIDING SCALE (NOVOLOG) 1 VIAL SQ SCH (06:18)
[2022-07-12 08:35] LABS: ALBUMIN 2.8 g/dl (3.4-5.0); BILIRUBIN,TOTAL 0.4 mg/dl (0.2-1); CREATININE 2.3 mg/dl (0.55-1.3); POTASSIUM 4.3 mmol/L (3.5-5.1); TOT PROT 5.7 g/dl (6.4-8.2)
[2022-07-12] MEDS ORDERED: ACETAMINOPHEN 325 MG TABLET (FP) PO PRN ×2 (08:36→08:47)
[2022-07-12] MEDS ORDERED: VENLAFAXINE HCL 75 MG TABLET PO ONE (08:40)
[2022-07-12] MEDS: TOPIRAMATE 25 MG TABLET PO SCH ×2 (10:18→21:56)
[2022-07-12] MEDS: METOPROLOL TARTRATE 50 MG TABLET (FP) PO SCH ×2 (10:18→21:57)
[2022-07-12] MEDS: amLODIPine BESYLATE 10 MG TABLET (FP) PO SCH (10:18)
[2022-07-12] MEDS: VENLAFAXINE HCL 37.5 MG E.R. CAPSULE PO SCH (10:18)
[2022-07-12] MEDS: ISOSORBIDE MONONITRATE 30 MG TAB.SR.24H (FP) PO SCH (10:18)
[2022-07-12] MEDS: ASPIRIN 81 MG CHEWABLE TABLETS PO SCH (10:18)
[2022-07-12] MEDS: hydrALAZINE HCL 25 MG TABLET (FP) PO SCH ×2 (13:33→21:57)
[2022-07-12] MEDS: VENLAFAXINE HCL 75 MG E.R. CAPSULES PO SCH (15:09)
[2022-07-12] MEDS ORDERED: MINERAL OIL ENEMA 133 ML ENEMA RC ONE (16:14)
[2022-07-12] MEDS: oxyCODONE HCL 5 MG TABLET PO PRN (16:57)
[2022-07-12] MEDS ORDERED: POLYETHYLENE GLYCOL (HEALTHYLAX) 3350 17 GM PACKET PO ONE (19:15)
[2022-07-12] MEDS ORDERED: ROSUVASTATIN CA 40 MG TABLET PO SCH (22:00)
[2022-07-12] MEDS ORDERED: DOCUSATE SODIUM 100 MG CAPSULE (FP) PO SCH (22:00)
[2022-07-13] MEDS: HEPARIN NA (PORCINE) 5,000 UNITS/ML 1ML VIAL SQ SCH ×2 (06:21→14:01)
[2022-07-13] MEDS: hydrALAZINE HCL 25 MG TABLET (FP) PO SCH ×2 (06:22→14:01)
[2022-07-13] MEDS ORDERED: POLYETHYLENE GLYCOL (HEALTHYLAX) 3350 17 GM PACKET PO SCH (06:45)
[2022-07-13] MEDS ORDERED: TAMSULOSIN HCL 0.4 MG CAP PO SCH (08:30)
[2022-07-13] MEDS: ISOSORBIDE MONONITRATE 30 MG TAB.SR.24H (FP) PO SCH (09:16)
[2022-07-13] MEDS: ASPIRIN 81 MG CHEWABLE TABLETS PO SCH (09:17)
[2022-07-13] MEDS: VENLAFAXINE HCL 75 MG E.R. CAPSULES PO SCH (09:17)
[2022-07-13] MEDS: METOPROLOL TARTRATE 50 MG TABLET (FP) PO SCH (09:17)
[2022-07-13] MEDS: amLODIPine BESYLATE 10 MG TABLET (FP) PO SCH (09:17)
[2022-07-13] MEDS: oxyCODONE HCL 5 MG TABLET PO PRN (09:18)
[2022-07-13] MEDS: VENLAFAXINE HCL 37.5 MG E.R. CAPSULE PO SCH (09:25)
[2022-07-13] MEDS: TOPIRAMATE 25 MG TABLET PO SCH (09:25)
[2022-07-13] MEDS ORDERED: LIDOCAINE 5% TOPICAL PATCH TP SCH (10:00)
[2022-07-13] MEDS ORDERED: MINERAL OIL ENEMA 133 ML ENEMA RC ONE (13:00)
[2022-07-13 14:53] VITALS: BP 132/68; PULSE 64; TEMP 98.8
[2022-07-13] MEDS ORDERED: LIDOCAINE PATCH REMOVAL MC SCH (22:00)
== END 2022-07-13 17:04 | disposition home or self-care (01) | DRG 560 ==
LOC: FER 08:57 → FM/S 13:11
PROVIDERS: ADMIT Internal Medicine; ATTEND Internal Medicine
DX: M97.02XA Periprosthetic fracture around internal prosthetic left hip joint, initial encounter (principal); I24.8 Other forms of acute ischemic heart disease; I42.8 Other cardiomyopathies; I25.10 Atherosclerotic heart disease of native coronary artery without angina pectoris; E78.5 Hyperlipidemia, unspecified; F41.8 Other specified anxiety disorders; I12.9 Hypertensive chronic kidney disease with stage 1 through stage 4 chronic kidney disease, or unspecified chronic kidney disease; E11.22 Type 2 diabetes mellitus with diabetic chronic kidney disease; N18.9 Chronic kidney disease, unspecified; R74.8 Abnormal levels of other serum enzymes; I45.10 Unspecified right bundle-branch block; Z86.73 Personal history of transient ischemic attack (TIA), and cerebral infarction without residual deficits; Z85.038 Personal history of other malignant neoplasm of large intestine; E66.9 Obesity, unspecified; Z68.30 Body mass index [BMI] 30.0-30.9, adult
CPT/HCPCS: 36415; 71045-TC-FY; 73502-TC-LT-FY; 73552-TC-LT-FY; 74019-TC-FY; 80053; 82550; 82553; 82962; 83880; 84484; 85027; 85610; 85730; 86850; 86900; 86901; 93005; 93010; 93306-TC; 97116-GP; 97162-GP; 99285-25; C9803-CS; J1644; U0003; U0005

== ENCOUNTER 2023-03-03 21:24 | Inpatient (IN) | payer OTHER, MEDICARE ==
[2023-03-03 21:42] LABS: HEMATOCRIT 36.1 % (35.4-49); HEMOGLOBIN 11.6 G/dL (11.7-16.9); MCH 28.1 pg (25.7-33.7); MEAN CELL VOLUME 87.6 fl (80-96); MEAN PLT VOLUME 7.7 fl (7.5-11.1); PLATELET COUNT 166.2 10^3/uL (134-434); RBC 4.12 10^6/uL (4.00-5.60); RDW 16.7 % (11.9-15.9); WHITE BLOOD COUNT 6.6 10^3/uL (4.0-10.8)
[2023-03-03 21:45] VITALS: BMI 31.3
[2023-03-03] MEDS ORDERED: FUROSEMIDE 40 MG/4 ML INJECTABLE VIAL IVPUSH ONE ×2 (21:51→22:27)
[2023-03-03] MEDS ORDERED: NITROGLYCERIN 2% OINTMENT - 1GM PACKET TD ONE ×2 (21:52→21:54)
[2023-03-03] MEDS ORDERED: FUROSEMIDE 40 MG/4 ML INJECTABLE VIAL ONE ×2 (21:53→22:28)
[2023-03-03 22:06] LABS: ALBUMIN 4.1 g/dl (3.4-5.0); BILIRUBIN,TOTAL 0.5 mg/dl (0.2-1); CALCIUM 8.9 mg/dl (8.5-10.1); CREATININE 2.5 mg/dl (0.6-1.3); POTASSIUM 3.9 mmol/L (3.5-5.1); TOT PROT 6.7 g/dl (6.4-8.2)
[2023-03-03] MEDS ORDERED: ASPIRIN 81 MG CHEWABLE TABLETS PO ONE (22:39)
[2023-03-03] MEDS ORDERED: ASPIRIN 81 MG CHEWABLE TABLETS ONE (22:44)
[2023-03-03 22:46] LABS: EPITHELIAL CELLS 0-5 /hpf
[2023-03-03 22:47] LABS: AMORP URATES SMALL /hpf (NONE SEEN)
[2023-03-03 22:59] LABS: INR 1.24 (0.83-1.09); PROTHROMBIN TIME (PATIENT) 14.4 SEC (9.7-13.0)
[2023-03-04] MEDS ORDERED: OSELTAMIVIR PHOSPHATE 45 MG CAPSULE PO ONE
[2023-03-04] MEDS ORDERED: FUROSEMIDE 40 MG/4 ML INJECTABLE VIAL IVPUSH ONE (00:07)
[2023-03-04] MEDS ORDERED: ACETAMINOPHEN 1000 MG/100 ML BAG IVPB ONE (00:11)
[2023-03-04] MEDS ORDERED: ACETAMINOPHEN 1000 MG/100 ML BAG IVPB PRN (00:11)
[2023-03-04] MEDS: INSULIN ASPART SLIDING SCALE (NOVOLOG) 1 VIAL SQ SCH ×5 (00:16→21:18)
[2023-03-04] MEDS ORDERED: OSELTAMIVIR PHOSPHATE 30 MG CAPSULE PO ONE (01:15)
[2023-03-04] MEDS: FUROSEMIDE 40 MG/4 ML INJECTABLE VIAL IVPUSH SCH ×2 (06:37→14:24)
[2023-03-04 08:40] LABS: ALBUMIN 3.9 g/dl (3.4-5.0); BILIRUBIN,TOTAL 0.5 mg/dl (0.2-1); CALCIUM 8.7 mg/dl (8.5-10.1); CREATININE 2.8 mg/dl (0.6-1.3); MAGNESIUM 1.9 mg/dL (1.8-2.4); POTASSIUM 3.8 mmol/L (3.5-5.1); TOT PROT 6.1 g/dl (6.4-8.2)
[2023-03-04] MEDS ORDERED: FUROSEMIDE IVPUSH ONE (10:00)
[2023-03-04] MEDS ORDERED: ASPIRIN 81 MG CHEWABLE TABLETS PO SCH (10:00)
[2023-03-04] MEDS ORDERED: ISOSORBIDE MONONITRATE 60 MG TAB.SR.24H (FP) PO SCH (10:00)
[2023-03-04] MEDS ORDERED: ISOSORBIDE MONONITRATE 30 MG TAB.SR.24H (FP) PO SCH (10:00)
[2023-03-04] MEDS ORDERED: OSELTAMIVIR PHOSPHATE 45 MG CAPSULE PO SCH (10:00)
[2023-03-04] MEDS ORDERED: FUROSEMIDE 100 MG/10 ML INJECTABLE VIAL IVPB ONE (10:00)
[2023-03-04] MEDS ORDERED: SODIUM CHLORIDE IVPUSH ONE (10:00)
[2023-03-04] MEDS: OSELTAMIVIR PHOSPHATE 30 MG CAPSULE PO SCH ×2 (10:13→21:19)
[2023-03-04] MEDS ORDERED: ALBUTEROL SO4 0.083% IH SOL 2.5 MG/3 ML VIAL.NEB. NEB PRN (10:41)
[2023-03-04] MEDS: hydrALAZINE HCL 25 MG TABLET (FP) PO SCH ×2 (14:24→21:19)
[2023-03-04] MEDS ORDERED: BUDESONIDE 0.25 MG/2ML INH SUSP VIAL NEB SCH (20:00)
[2023-03-04 22:44] VITALS: BP 146/92; PULSE 86; RESP 22; TEMP 98.9
== END 2023-03-04 23:30 | disposition short-term general hospital (02) | DRG 189 ==
LOC: FER 21:24 → FM/S 23:16
PROVIDERS: ADMIT Internal Medicine; ATTEND Internal Medicine
DX: J81.0 Acute pulmonary edema (principal); I13.0 Hypertensive heart and chronic kidney disease with heart failure and stage 1 through stage 4 chronic kidney disease, or unspecified chronic kidney disease; I24.89 Other forms of acute ischemic heart disease; I45.2 Bifascicular block; J10.1 Influenza due to other identified influenza virus with other respiratory manifestations; I25.10 Atherosclerotic heart disease of native coronary artery without angina pectoris; E11.9 Type 2 diabetes mellitus without complications; N18.1 Chronic kidney disease, stage 1; I50.9 Heart failure, unspecified; I35.0 Nonrheumatic aortic (valve) stenosis
CPT/HCPCS: 0241U-QW; 36415; 71045-TC-FY; 80053; 81003; 81015; 82962; 83735; 83880; 84484; 85027; 85610; 93005; 93010; 93306-TC; 94640; 99285-25

== ENCOUNTER 2024-01-31 12:46 | Inpatient (IN) | payer OTHER, MEDICARE ==
[2024-01-31 13:56] LABS: EOS % 2.8 % (0-4.5); HEMATOCRIT 32.2 % (35.4-49); HEMOGLOBIN 9.9 GM/dL (11.7-16.9); LYMPH % 16.1 % (8-40); MCH 28.5 pg (25.7-33.7); MCHC 30.8 g/dl (32.0-35.9); MEAN CELL VOLUME 92.6 fl (80-96); MEAN PLT VOLUME 7.7 fl (7.5-11.1); MONO % 9.1 % (3.8-10.2); PLATELET COUNT 157 10^3/uL (134-434); RBC 3.48 M/mm3 (4.00-5.60)
[2024-01-31 14:08] LABS: ACTIVATED PTT 30.5 SECONDS (25.2-36.5)
[2024-01-31 14:13] LABS: INR 1.04 (0.83-1.09)
[2024-01-31 14:17] LABS: POTASSIUM 4.6 mmol/L (3.5-5.1)
[2024-01-31 14:19] LABS: ALBUMIN 3.5 g/dl (3.4-5.0); BLOOD UREA NITROGEN 47.9 mg/dL (7-18); CALCIUM 8.9 mg/dL (8.5-10.1)
[2024-01-31 14:22] LABS: CREATININE 2.7 mg/dL (0.55-1.3); MAGNESIUM 2.3 mg/dL (1.8-2.4)
[2024-01-31 14:24] LABS: BILIRUBIN,TOTAL 0.7 mg/dL (0.2-1); TOT PROT 6.6 g/dl (6.4-8.2)
[2024-01-31 14:27] LABS: N-TERMINAL BNP 26322.2 pg/ml (5-450)
[2024-01-31 14:30] LABS: PHOSPHOROUS 3.8 mg/dL (2.5-4.9)
[2024-01-31] MEDS ORDERED: FUROSEMIDE 40 MG/4 ML INJECTABLE VIAL ONE (15:27)
[2024-01-31] MEDS: FUROSEMIDE 40 MG/4 ML INJECTABLE VIAL IVPUSH ONE ×2 (15:36→21:28)
[2024-01-31] MEDS ORDERED: amLODIPine BESYLATE 10 MG TABLET (FP) PO SCH (17:15)
[2024-01-31] MEDS ORDERED: amLODIPine BESYLATE 10 MG TABLET (FP) ONE (17:43)
[2024-01-31] MEDS ORDERED: FUROSEMIDE 40 MG/4 ML INJECTABLE VIAL IVPUSH ONE (18:16)
[2024-01-31 18:52] VITALS: BMI 32.7
[2024-01-31 19:42] LABS: HIV INTERPRETATION NEGATIVE (NEGATIVE)
[2024-01-31] MEDS: ATORVASTATIN CA 80 MG TABLET (FP) PO SCH (21:23)
[2024-01-31] MEDS: CARVEDILOL 12.5 MG TABLET (FP) PO SCH (21:24)
[2024-01-31] MEDS ORDERED: FUROSEMIDE 100 MG/10 ML INJECTABLE VIAL IVPB SCH (22:00)
[2024-02-01 05:49] VITALS: RESP 18
[2024-02-01] MEDS: FUROSEMIDE 40 MG/4 ML INJECTABLE VIAL IVPUSH SCH (05:51)
[2024-02-01] MEDS: EMPAGLIFLOZIN (JARDIANCE) 10 MG TABLET PO SCH (06:00)
[2024-02-01 06:50] LABS: HEMATOCRIT 28.3 % (35.4-49); HEMOGLOBIN 9.1 GM/dL (11.7-16.9); MCH 29.3 pg (25.7-33.7); MEAN CELL VOLUME 91.4 fl (80-96); MEAN PLT VOLUME 7.8 fl (7.5-11.1); PLATELET COUNT 132 10^3/uL (134-434); RDW 17.7 % (11.9-15.9); WHITE BLOOD COUNT 6.6 K/mm3 (4.0-10.0)
[2024-02-01 07:09] LABS: POTASSIUM 3.9 mmol/L (3.5-5.1)
[2024-02-01 07:14] LABS: CALCIUM 8.9 mg/dL (8.5-10.1)
[2024-02-01 07:15] LABS: MAGNESIUM 2.3 mg/dL (1.8-2.4)
[2024-02-01 07:17] LABS: ALBUMIN 3.3 g/dl (3.4-5.0); CREATININE 2.8 mg/dL (0.55-1.3); PHOSPHOROUS 5.1 mg/dL (2.5-4.9)
[2024-02-01 07:19] LABS: BILIRUBIN,TOTAL 0.8 mg/dL (0.2-1); TOT PROT 5.9 g/dl (6.4-8.2)
[2024-02-01] MEDS: POTASSIUM CHLORIDE ORAL LIQUID 20 MEQ/15 ML PO ONE (08:26)
[2024-02-01] MEDS: EZETIMIBE 10 MG TABLET (FP) PO SCH (09:02)
[2024-02-01] MEDS: ISOSORBIDE MONONITRATE 30 MG TAB.SR.24H (FP) PO SCH (09:02)
[2024-02-01] MEDS: amLODIPine BESYLATE 10 MG TABLET (FP) PO SCH (09:02)
[2024-02-01] MEDS ORDERED: PATIENT'S OWN MEDICATION (NON-FORMULARY) (Dapagliflozin Propanediol [Farxiga] 5 MG Tablet) PO SCH (10:00)
[2024-02-01] MEDS ORDERED: CARVEDILOL 25 MG TABLET (FP) PO SCH (10:00)
[2024-02-01] MEDS: SODIUM BICARBONATE 650 MG TABLET PO SCH (11:58)
[2024-02-01] MEDS: TAMSULOSIN HCL 0.4 MG CAP PO SCH (11:58)
[2024-02-01] MEDS: SPIRONOLACTONE 25 MG TABLET PO SCH (12:05)
[2024-02-01] MEDS: hydrALAZINE HCL 10 MG TABLET PO SCH (14:42)
[2024-02-01] MEDS: HEPARIN NA (PORCINE) 5,000 UNITS/ML 1ML VIAL SQ SCH (21:18)
[2024-02-02 07:55] LABS: CALCIUM 8.9 mg/dL (8.5-10.1)
[2024-02-02 07:56] LABS: BLOOD UREA NITROGEN 47.8 mg/dL (7-18); MAGNESIUM 2.3 mg/dL (1.8-2.4)
[2024-02-02 07:59] LABS: CREATININE 2.9 mg/dL (0.55-1.3)
[2024-02-02 08:00] LABS: PHOSPHOROUS 5.2 mg/dL (2.5-4.9)
[2024-02-02] MEDS: POTASSIUM CHLORIDE ORAL LIQUID 20 MEQ/15 ML PO ONE (10:47)
[2024-02-02] MEDS: PATIENT'S OWN MEDICATION (NON-FORMULARY) (Mirabegron [Myrbetriq] 50 MG Tab.Er.24h) PO SCH (16:45)
[2024-02-02] MEDS: ATORVASTATIN CA 80 MG TABLET (FP) PO SCH (22:15)
[2024-02-02] MEDS: HEPARIN NA (PORCINE) 5,000 UNITS/ML 1ML VIAL SQ SCH (22:15)
[2024-02-02] MEDS: CARVEDILOL 12.5 MG TABLET (FP) PO SCH (22:15)
[2024-02-02] MEDS: hydrALAZINE HCL 10 MG TABLET PO SCH (22:15)
[2024-02-02] MEDS: SODIUM BICARBONATE 650 MG TABLET PO SCH (22:15)
[2024-02-03] MEDS: EMPAGLIFLOZIN (JARDIANCE) 10 MG TABLET PO SCH (06:34)
[2024-02-03 09:19] LABS: HEMATOCRIT 31.1 % (35.4-49); HEMOGLOBIN 9.7 GM/dL (11.7-16.9); MCH 28.4 pg (25.7-33.7); MCHC 31.1 g/dl (32.0-35.9); MEAN CELL VOLUME 91.3 fl (80-96); PLATELET COUNT 149 10^3/uL (134-434); RBC 3.41 M/mm3 (4.00-5.60); WHITE BLOOD COUNT 5.5 K/mm3 (4.0-10.0)
[2024-02-03 09:48] LABS: POTASSIUM 4.3 mmol/L (3.5-5.1)
[2024-02-03 09:56] LABS: CALCIUM 9.2 mg/dL (8.5-10.1)
[2024-02-03 09:58] LABS: CREATININE 2.8 mg/dL (0.55-1.3)
[2024-02-03] MEDS: FUROSEMIDE 40 MG TABLET (FP) PO SCH (09:59)
[2024-02-03] MEDS: EZETIMIBE 10 MG TABLET (FP) PO SCH (09:59)
[2024-02-03] MEDS: amLODIPine BESYLATE 10 MG TABLET (FP) PO SCH (10:00)
[2024-02-03] MEDS ORDERED: PATIENT'S OWN MEDICATION (NON-FORMULARY) (Mirabegron [Myrbetriq] 50 MG) PO SCH (10:00)
[2024-02-03] MEDS: TAMSULOSIN HCL 0.4 MG CAP PO SCH (10:00)
[2024-02-03] MEDS: ISOSORBIDE MONONITRATE 30 MG TAB.SR.24H (FP) PO SCH (10:00)
[2024-02-03 10:05] LABS: BLOOD UREA NITROGEN 44.3 mg/dL (7-18)
[2024-02-03 15:07] VITALS: BP 136/71; PULSE 75; TEMP 98.2
== END 2024-02-03 14:50 | disposition home or self-care (01) | DRG 291 ==
LOC: JER 12:46 → JERBED 16:48 → OBSVTOIN 16:48 → J4W 18:29 → J8W 02-02 12:46
PROVIDERS: ADMIT Internal Medicine; ATTEND Nurse Practitioner Family
DX: I13.0 Hypertensive heart and chronic kidney disease with heart failure and stage 1 through stage 4 chronic kidney disease, or unspecified chronic kidney disease (principal); I50.23 Acute on chronic systolic (congestive) heart failure; N18.9 Chronic kidney disease, unspecified; I16.0 Hypertensive urgency; I25.10 Atherosclerotic heart disease of native coronary artery without angina pectoris; F41.8 Other specified anxiety disorders; E87.70 Fluid overload, unspecified; E78.5 Hyperlipidemia, unspecified; D64.9 Anemia, unspecified; E11.22 Type 2 diabetes mellitus with diabetic chronic kidney disease; J44.9 Chronic obstructive pulmonary disease, unspecified; I35.0 Nonrheumatic aortic (valve) stenosis; E66.9 Obesity, unspecified; Z68.31 Body mass index [BMI] 31.0-31.9, adult; Z85.038 Personal history of other malignant neoplasm of large intestine; Z96.642 Presence of left artificial hip joint; Z95.0 Presence of cardiac pacemaker
CPT/HCPCS: 0241U-QW; 36415; 71045-TC-FY; 76775-TC; 80048; 80053; 82962; 83735; 83880; 84100; 84484; 85025; 85027; 85610; 85730; 86803; 87389; 93005; 93010; 93306-TC; 99285-25; J1644